=== PATIENT | male | born 1955 | race Caucasian/White ===

== ENCOUNTER 2023-01-15 10:34 | Outpatient (OUT) | payer MEDICARE, SELFPAY ==
[2023-01-15 11:08] LABS: Basophils Absolute Auto 0.1 10^3/uL (0.0-0.1); Basophils Percent Auto 0.5 % (0.2-2.0); Eosinophils Absolute Auto 0.3 10^3/uL (0.0-0.7); Hematocrit 54.8 % (42.0-54.0); Hemoglobin 18.4 g/dL (14.0-18.0); Immature Granulocytes Abs Auto 0.02 10^3/uL (0.00-0.03); Immature Granulocytes Pct Auto 0.2 % (0.0-0.5); Lymphocytes Absolute Auto 2.6 10^3/uL (1.2-3.8); Lymphocytes Percent Auto 25.3 % (20.5-60.0); Mean Corpuscular HGB Conc 33.6 g/dL (29.9-35.2); Mean Corpuscular Hemoglobin 30.9 pg (25.9-34.0); Mean Corpuscular Volume 91.9 fL (80.0-94.0); Mean Platelet Volume 10.2 fL (9.5-13.5); Monocytes Absolute Auto 0.8 10^3/uL (0.3-0.8); Monocytes Percent Auto 8.2 % (1.7-12.0); Neutrophils Absolute Auto 6.4 10^3/uL (1.4-6.5); Neutrophils Percent Auto 62.8 % (43.0-75.0); Platelet Count 173 10^3/uL (150-450); Red Blood Count 5.96 10^6/uL (4.70-6.10); Red Cell Distribution Width 14.6 % (11.0-15.0); White Blood Count 10.2 10^3/uL (4.0-11.0)
[2023-01-15 11:19] LABS: Estimated Average Glucose 123 mg/dL; Glycohemoglobin A1C 5.9 % (4.5-6.2)
[2023-01-15 12:18] LABS: Alanine Aminotransferase 23 U/L (16-63); Albumin Globulin Ratio 0.9; Albumin Level 3.7 g/dL (3.4-5.0); Alkaline Phosphatase 60 U/L (46-116); Anion Gap 11.2; Aspartate Amino Transferase 15 U/L (15-37); BUN Creatinine Ratio 9.6; Bilirubin Direct 0.1 mg/dL (0.0-0.2); Bilirubin Total 0.4 mg/dL (0.2-1.0); Carbon Dioxide 26.7 mmol/L (21.0-32.0); Chloride 106 mmol/L (98-107); Chol HDL Ratio 4.9; Cholesterol 167 mg/dL (<=200); Estimated GFR (African America >60 (>=60); Estimated GFR (Non-African Ame >60 (>=60); Globulin 4.2 g/dL; Glucose 135 mg/dL (74-106); HDL Cholesterol 34 mg/dL (40-60); Potassium 3.9 mmol/L (3.5-5.1); Sodium 140 mmol/L (136-145); Thyroid Stimulating Hormone 2.069 uIU/mL (0.358-3.740); Total Protein 7.9 g/dL (6.4-8.2); Triglycerides 235 mg/dL (<=150)
[2023-01-15 13:38] LABS: Prostate Specific Antigen Scrn 1.32 ng/mL (<=4.00)
== END 2023-01-15 10:35 | disposition home or self-care (01) ==
PROVIDERS: PCP Family Medicine; Visit Provider Family Medicine
DX: E55.9 Vitamin D deficiency, unspecified (principal); I10 Essential (primary) hypertension; Z79.899 Other long term (current) drug therapy; R73.03 Prediabetes; E78.5 Hyperlipidemia, unspecified; Z12.5 Encounter for screening for malignant neoplasm of prostate; K58.0 Irritable bowel syndrome with diarrhea
CPT/HCPCS: 36415; 80048; 80061; 80076; 82306; 83036; 84443; 85025; G0103

== ENCOUNTER 2023-06-08 10:44 | Emergency (ER) | payer MEDICARE, BC, SELFPAY ==
[2023-06-08] VITALS (12 sets, daily range): BP systolic 150–180; BP diastolic 91–119; PULSE 71–99; RESP 13–22; TEMP 36.4; O2SAT 94–100; BMI 28.2
--- NOTE | 2023-06-08 11:10 | ECG_ITS ---
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
--- NOTE | 2023-06-08 11:11 | XR_ITS ---
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 There is evidence of mild slightly coarse increased interstitial markings throughout all lung serrano likely representing chronic lung changes, similar to previous exam. There is no evidence of pleural effusion or pneumothorax. XR/XR chest 2V IMPRESSION: The findings most likely represent chronic lung changes. Stable chest. Electronically authenticated by: KELIN BELTRAN Date: 06/08/2023 11:57
--- NOTE | 2023-06-08 11:16 | XR_ITS ---
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 There is mild acromioclavicular degenerative change. The visualized soft tissue show no abnormalities in these projections. XR/XR shoulder LT min 2V IMPRESSION: Left shoulder radiographs show no evidence of acute abnormalities. Electronically authenticated by: KELIN BELTRAN Date: 06/08/2023 12:12
[2023-06-08 11:34] LABS: Basophils Percent Auto 0.5 % (0.2-2.0); Eosinophils Absolute Auto 0.3 10^3/uL (0.0-0.7); Eosinophils Percent Auto 4.3 % (0.9-7.0); Hematocrit 52.9 % (42.0-54.0); Hemoglobin 17.8 g/dL (14.0-18.0); Immature Granulocytes Abs Auto 0.02 10^3/uL (0.00-0.03); Immature Granulocytes Pct Auto 0.3 % (0.0-0.5); Lymphocytes Absolute Auto 2.4 10^3/uL (1.2-3.8); Lymphocytes Percent Auto 33.2 % (20.5-60.0); Mean Corpuscular HGB Conc 33.6 g/dL (29.9-35.2); Mean Platelet Volume 9.8 fL (9.5-13.5); Monocytes Absolute Auto 0.7 10^3/uL (0.3-0.8); Monocytes Percent Auto 9.2 % (1.7-12.0); Neutrophils Absolute Auto 3.8 10^3/uL (1.4-6.5); Neutrophils Percent Auto 52.5 % (43.0-75.0); Platelet Count 169 10^3/uL (150-450); Red Blood Count 5.75 10^6/uL (4.70-6.10); Red Cell Distribution Width 14.4 % (11.0-15.0); White Blood Count 7.3 10^3/uL (4.0-11.0)
[2023-06-08 11:46] LABS: INR 1.04
[2023-06-08 11:52] LABS: Alanine Aminotransferase 20 U/L (16-63); Albumin Globulin Ratio 0.8; Albumin Level 3.5 g/dL (3.4-5.0); Alkaline Phosphatase 67 U/L (46-116); Anion Gap 9.9; Aspartate Amino Transferase 15 U/L (15-37); BUN Creatinine Ratio 11.7; Bilirubin Total 0.4 mg/dL (0.2-1.0); Calcium 9.6 mg/dL (8.5-10.1); Carbon Dioxide 29.8 mmol/L (21.0-32.0); Chloride 106 mmol/L (98-107); Estimated GFR (African America >60 (>=60); Estimated GFR (Non-African Ame >60 (>=60); Globulin 4.6 g/dL; Glucose 99 mg/dL (74-106); Potassium 4.7 mmol/L (3.5-5.1); Sodium 141 mmol/L (136-145); Total Protein 8.1 g/dL (6.4-8.2)
[2023-06-08 11:53] LABS: Troponin I High Sensitivity 9.6 pg/mL (4.0-76.1)
[2023-06-08] MEDS: KETOROLAC TROMETHAMINE 30 MG/ML VIAL 15 MG IVP (11:53)
--- NOTE | 2023-06-08 15:03 | ED_ITS ---
HPI - Extremity Injury (Upper) General Chief Complaint: Extremity Injury, Upper Stated Complaint: UPPER EXTREMITY PAIN Time Seen by Provider: 06/08/23 11:10 Source: patient Mode of arrival: walk-in Limitations: no limitations History of Present Illness HPI narrative: The patient is coming to the ER with a left shoulder pain that been going on for the last 2 weeks he mentioned that the pain radiated down to his elbow he denies any fall or trauma, the patient denies any sweating nausea vomiting or chest pain Related Data Home Medications Medication Instructions Recorded Confirmed atorvastatin 40 mg tablet 40 mg PO DAILY 06/08/23 06/08/23 lisinopril 20 mg tablet 20 mg PO DAILY 06/08/23 06/08/23 Previous Rx's Medication Instructions Recorded meloxicam 15 mg tablet 15 mg PO DAILY PRN pain #7 tabs 06/08/23 Allergies Allergy/AdvReac Type Severity Reaction Status Date / Time codeine Allergy Intermediate Verified 06/08/23 10:51 Penicillins Allergy Intermediate Verified 06/08/23 10:51 Review of Systems ROS Status of ROS 10 or more systems reviewed and unremark able except as noted in history and below [facility] Medical History (Updated 06/08/23 @ 12:25 by Avis Batista MD) High cholesterol ?E78.00 - Pure hypercholesterolemia, unspecified (ICD-10) Myocardial infarction ?I21.9 - Acute myocardial infarction, unspecified (ICD-10) Social History Smoking status: Current every day smoker Exam Narrative Exam Narrative: Nurses notes and vital signs reviewed and patient is not hypoxic. General: Well-appearing and in no apparent distress. Skin: Warm, dry, no pallor noted. No rash. Head: Normocephalic, atraumatic. Neck: Supple, non-tender. Eye: Pupils are equal, round and EOMI. No scleral icterus. Ears, Nose, Mouth, and Throat: TM are clear, no nasal mucosal hypertrophy. Oral mucosa is moist, no posterior oropharynx erythema, uvula is mid-line Cardiovascular: Regular Rate and Rhythm without murmur, gallop or rub. Respiratory: No accessory muscle use or respiratory distress. Lungs are clear to auscultation, no wheezing, rales or rhonchi Chest Wall: no tenderness Back: No midline thoracic or lumbar vertebral tenderness. No CVA tenderness Musculoskeletal: normal ROM, no calf or popliteal tenderness, no lower extremity edema/swelling there is a localized tenderness at the anterior aspect of the left shoulder GI: Abdomen is soft, non-distended. Normal bowel sounds. No masses appreciated. No tenderness to palpation. No rebound, guarding, or rigidity noted. Neurological: A&O x4. No cranial nerve dysfunction observed. No truncal ataxia. Moves all extremities. Sensation intact. Psychiatric: Cooperative and interactive. Normal mood and affect. Constitutional Vital Signs, click to edit/add: Last Vital Signs Temp 97.6 F 06/08/23 10:47 Pulse 80 06/08/23 12:30 Resp 18 06/08/23 12:30 BP 160/91 H 06/08/23 12:30 Pulse Ox 96 06/08/23 12:30 O2 Del Method Room Air 06/08/23 12:30 Course Vital Signs Vital signs: Vital Signs Temperature 97.6 F 06/08/23 10:47 Pulse Rate 99 H 06/08/23 10:47 Respiratory Rate 18 06/08/23 10:47 Blood Pressure 180/112 H 06/08/23 10:47 Pulse Oximetry 97 06/08/23 10:47 Temperature 97.6 F 06/08/23 10:47 Pulse Rate 80 06/08/23 12:30 Respiratory Rate 18 06/08/23 12:30 Blood Pressure 160/91 H 06/08/23 12:30 Pulse Oximetry 96 06/08/23 12:30 Oxygen Delivery Method Room Air 06/08/23 12:30 MDM - Extremity Injury (Upper) MDM Narrative Medical decision making narrative: The patient EKG in the ER showing sinus rhythm with a heart rate of [address] elevation or depression It was noted upon presentation that the patient blood pressure was elevated but he did not take his blood pressure medication today CBC chemistry showed no acute pathology and the patient chest x-ray and x-ray of the left shoulder showed no acute pathology as well The patient was feeling much better after being treated with a Toradol in the ER he was discharged home with instruction that he need to follow-up with orthopedic as outpatient he also was provided with a Mobic prescription The patient is to follow up with primary care physician in next 2-3 days or to return to the emergency department should any of the signs or symptoms worsen or new symptoms develop. The patient agrees with the following Diagnosis and Treatment plan and the patient will be discharged home. Lab Data Labs: Lab Results 06/08/23 Range/Units 11:26 WBC 7.3 (4.0-11.0) 10^3/uL RBC 5.75 (4.70-6.10) 10^6/uL Hgb 17.8 (14.0-18.0) g/dL Hct 52.9 (42.0-54.0) % MCV 92.0 (80.0-94.0) fL MCH 31.0 (25.9-34.0) pg MCHC 33.6 (29.9-35.2) g/dL RDW 14.4 (11.0-15.0) % Plt Count 169 (150-450) 10^3/uL MPV 9.8 (9.5-13.5) fL Neut % (Auto) 52.5 (43.0-75.0) % Lymph % (Auto) 33.2 (20.5-60.0) % [place] % (Auto) 9.2 (1.7-12.0) % Eos % (Auto) 4.3 (0.9-7.0) % Baso % (Auto) 0.5 (0.2-2.0) % Neut # (Auto) 3.8 (1.4-6.5) 10^3/uL Lymph # (Auto) 2.4 (1.2-3.8) 10^3/uL [place] # (Auto) 0.7 (0.3-0.8) 10^3/uL Eos # (Auto) 0.3 (0.0-0.7) 10^3/uL Baso # (Auto) 0.0 (0.0-0.1) 10^3/uL Abs Immat Gran (auto) 0.02 (0.00-0.03) 10^3/uL Imm/Tot Granulo (auto) 0.3 (0.0-0.5) % PT 11.0 (9.0-11.6) sec INR 1.04 Sodium 141 (136-145) mmol/L Potassium 4.7 (3.5-5.1) mmol/L Chloride 106 (98-107) mmol/L Carbon Dioxide 29.8 (21.0-32.0) mmol/L Anion Gap 9.9 BUN 13.0 (7.0-18.0) mg/dL Creatinine 1.11 (0.70-1.30) mg/dL Est GFR ( Amer) >60 (>=60) Est GFR (Non-Af Amer) >60 (>=60) BUN/Creatinine Ratio 11.7 Glucose 99 (74-106) mg/dL Calcium 9.6 (8.5-10.1) mg/dL Total Bilirubin 0.4 (0.2-1.0) mg/dL AST 15 (15-37) U/L ALT 20 (16-63) U/L Alkaline Phosphatase 67 (46-116) U/L Troponin I High Sens 9.6 (4.0-76.1) pg/mL Total Protein 8.1 (6.4-8.2) g/dL Albumin 3.5 (3.4-5.0) g/dL Globulin 4.6 g/dL Albumin/Globulin Ratio 0.8 Discharge Plan Discharge Chief Complaint: Extremity Injury, Upper Clinical Impression: Impingement of left shoulder Patient Disposition: Home, Self-Care Time of Disposition Decision: 12:25 Condition: Good Prescriptions / Home Meds: New meloxicam 15 mg tablet 15 mg PO DAILY PRN (Reason: pain ) Qty: 7 0RF No Action lisinopril 20 mg tablet 20 mg PO DAILY atorvastatin 40 mg tablet 40 mg PO DAILY Instructions: Shoulder Pain (ED) Stand Alone Forms: Portal Instructions Referrals: Vinay Jimenez MD [Primary Care Provider] - 1 week Discharge Date/Time: 06/08/23 12:36
== END 2023-06-08 12:36 | disposition home or self-care (01) ==
PROVIDERS: Emergency Provider Emergency Medicine; PCP Family Medicine
DX: M75.42 Impingement syndrome of left shoulder (principal); E78.00 Pure hypercholesterolemia, unspecified; I10 Essential (primary) hypertension; I25.2 Old myocardial infarction; F17.210 Nicotine dependence, cigarettes, uncomplicated; Z79.899 Other long term (current) drug therapy
CPT/HCPCS: 36415; 71046; 73030; 80053; 84484; 85025; 85610; 93005; 96374; 99285; J1885

== ENCOUNTER 2023-06-18 10:49 | Emergency (ER) | payer MEDICARE, BC, SELFPAY ==
[2023-06-18 11:09] VITALS: BP 171/106; PULSE 94; RESP 16; TEMP 36.8; O2SAT 96; BMI 28.2
--- OUTSIDE RECORDS SUMMARY | 2023-06-18 11:22 | XMS_ITS | CCD ---
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 control and/or adjustment of mA and/or kV according to patient size and/or use of iterative reconstruction technique. ABDOMINAL CT SCAN FINDINGS: Minimal scarring in the inferior segment of the lingula. Normal heart size with no pericardial effusion. Small sliding hiatus hernia. Calcified granuloma in the spleen. Remaining nonenhanced abdominal solid organs are unremarkable. The gallbladder is contracted containing some gallstones but no CT findings of acute cholecystitis. No evidence of free intraperitoneal fluid or air. No acute osseous abnormality. Degenerative changes of the spine predominantly at L5-S1. Some bruising seen in the right anterior lateral subcutaneous flank of the lower abdomen and upper pelvis with a subcutaneous hematoma measuring 12.5 x 1.2 x 11.7 cm (image #39, series 5 and image #78, series 3). No extension within the muscle wall or within the abdomen or pelvis identified.. PELVIC CT FINDINGS: Acute nondisplaced fracture along the anterior cortical surface of the right iliac wing (image #[id number], series 3 and image #61, series 5). No other clear fracture identified. No subluxation or dislocation. Very mild fatty stranding/bruising seen just anterior to the right iliacus muscle. The right iliacus muscle is just minimally more prominent in short axis diameter measuring 2.5 cm in comparison to the left that measures 1.9 cm likely due to underlying bruising. Mild prostatomegaly measuring 4.8 x 3.9 cm. Seminal vesicles and urinary bladder are unremarkable. Diverticulosis of the colon without CT findings to suspect acute diverticulitis. No bowel obstruction or abnormal bowel wall thickening. The appendix is normal. No acute bony trauma. IMPRESSION: 1. Acute nondisplaced fracture along the anterior cortical surface of the right iliac wing is in good alignment. There is mild asymmetric prominence of the right iliacus muscle likely due to underlying bruising with associated mild fatty stranding just along the anterior surface of this muscle. 2. Some bruising seen within the right anterior lateral subcutaneous flank of the lower abdomen and upper pelvis with underlying subcutaneous hematoma measuring 12.5 x 1.2 x 11.7 cm. No extension into the muscle wall are within the abdomen or pelvis identified. 3. Cholelithiasis within a contracted gallbladder. No CT findings of acute cholecystitis. 4. Small sliding hiatus hernia. 5. Diverticulosis of the colon without CT findings to suspect acute diverticulitis. Electronically authenticated by: Alonzo SMALL Date: 2020-01-09 19:52 Normal [facility] LIPASEon 01-09-2020 Lipase [Catalytic activity/Vol] 203.0 U/L Normal 23.0-300.0 [facility] Comment on above: Performed By: #### L IPA, CMP #### [facility] [address] [place], [place] [id number] Balaedilberto Marceloen PROF 14(COMP METB)on 020 Albumin [Mass/Vol] 4.0 g/dL Normal 3.5-5.0 [facility] Comment on above: Performed By: #### L IPA, CMP #### [facility] [address] [place], [place] [id number] Bala Sultana Albumin/Globulin [Mass ratio] 1.0 {ratio} Normal [facility] Comment on above: Performed By: #### L IPA, CMP #### [facility] [address] [place], [place] [address] Bala Sultana ALP [Catalytic activity/Vol] 44 U/L Normal 38-126 [facility] Comment on above: Performed By: #### L IPA, CMP #### [facility] [address] [place], [place] [phone] Bala Sultana ALT [Catalytic activity/Vol] 40 U/L Normal 21-72 [facility] Comment on above: Performed By: #### L IPA, CMP #### [facility] [address] [place], [place] [phone] Bala Sultana Anion gap [Moles/Vol] 12.8 mmol/L Normal [facility] Comment on above: Performed By: #### L IPA, CMP #### [facility] [address] [place], [place] [address] Bala Sultana AST [Catalytic activity/Vol] 37 U/L Normal 17-59 [facility] Comment on above: Performed By: #### L IPA, CMP #### [facility] [address] [place], [place] [phone] Bala Sultana Bilirubin [Mass/Vol] 0.4 mg/dL Normal 0.2-1.3 [facility] Comment on above: Performed By: #### L IPA, CMP #### [facility] [address] [place] [id number] Bala Sultana Calcium [Mass/Vol] 9.4 mg/dL Normal 8.4-10.2 [facility] Comment on above: Performed By: #### L IPA, CMP #### [facility] [address] [place] [id number] Bala Sultana Chloride [Moles/Vol] 102 mmol/L Normal 98-107 [facility] Comment on above: Performed By: #### L IPA, CMP #### [facility] [address] [place] [address] Bala Sultana CO2 [Moles/Vol] 25.0 mmol/L Normal 22.0-30.0 [facility] Comment on above: Performed By: #### L IPA, CMP #### [facility] [address] [place] [address] Bala Sultana Creatinine [Mass/Vol] 2.06 mg/dL Critically high 0.66-1.25 [facility] Comment on above: Performed By: #### L IPA, CMP #### [facility] [address] [place] [id number] Bala Sultana EGFR-AF MOSOTHO 39 mL/min/1.73m2 Critically low >=60 [facility] Comment on above: Performed By: #### L IPA, CMP #### [facility] [address] [place] [address] Bala Sultana EGFR-NON AF MOSOTHO 32 mL/min/1.73m2 Critically low >=60 [facility] Comment on above: Performed By: #### L IPA, CMP #### [facility] [address] [place] [id number] Bala Sultana Globulin (S) [Mass/Vol] 4.0 g/dL Normal [facility] Comment on above: Performed By: #### L IPA, CMP #### [facility] [address] [place] [id number] Bala Sultana Glucose [Mass/Vol] 137 mg/dL Critically high 74-106 [facility] Comment on above: Performed By: #### L IPA, CMP #### [facility] [address] [place] [id number] Bala Sultana Potassium [Moles/Vol] 4.8 mmol/L Normal 3.4-5.0 [facility] Comment on above: Performed By: #### L IPA, CMP #### [facility] [address] [place] [id number] Bala Sultana Protein [Mass/Vol] 8.0 g/dL Normal 6.1-8.2 [facility] Comment on above: Performed By: #### L IPA, CMP #### [facility] [address] [place] [address] Bala Sultana Sodium [Moles/Vol] 135 mmol/L Critically low 137-145 [facility] Comment on above: Performed By: #### L IPA, CMP #### [facility] [address] [place] [id number] Bala Sultana Urea nitrogen [Mass/Vol] 33.0 mg/dL Critically high 9.0-20.0 [facility] Comment on above: Performed By: #### L IPA, CMP #### [facility] [address] [place] [id number] Bala Sultana Urea nitrogen/Creatinine [Mass ratio] 16.0 mg/mg Normal [facility] Comment on above: Performed By: #### L IPA, CMP #### [facility] [address] [place] [id number] Bala Weinberg HEMOGLOBINon 10-12-2019 Hemoglobin (Bld) [Mass/Vol] 14.1 g/dL Normal 14.0-18.0 [facility] Comment on above: Performed By: #### H GB #### [facility] [address] [place] [id number] Bala Sultana Basic Metabolic Panelon 06-27 Calcium mass conc 8.8 mg/dL Normal 8.2-10.2 [facility] Comment on above: Performed By: #### C BC, BMP, TROP #### [facility] [address] [place] [address] [place] Chloride molar conc 106 mmol/L Normal 95-114 [facility] Comment on above: Performed By: #### C BC, BMP, TROP #### [facility] [address] CO2 molar conc 22.1 mmol/L Normal 22.0-30.0 [facility] Comment on above: Performed By: #### C BC, BMP, TROP #### [facility] [address] [place] [address] Creatinine mass conc 81.4567750511 mg/dL Normal [facility] Comment on above: Performed By: #### C BC, BMP, TROP #### [facility] [address] Creatinine mass conc 1.11 mg/dL Normal 0.64-1.27 [facility] Comment on above: Performed By: #### C BC, BMP, TROP #### [address] Estimated GFR ( [place] > 60 [facility] Comment on above: Result Comment: GFR estimated reference range: According to KDOQI guidelines, <60 ml/min/1.73m2 is sufficient to diagnose a patient with chronic kidney disease. Performed By: #### C BC, BMP, TROP #### [address] Estimated GFR (Non- Am > 60 [facility] Comment on above: Performed By: #### C BC, BMP, TROP #### [address] Glucose mass conc 106 mg/dL High 70-100 [facility] Comment on above: Result Comment: [place] om Glucose Reference Range is dependent on time and content of last meal. Glucose of more than 200 mg/dL in a nonstressed, ambulatory subject supports the diagnosis of Diabetes Mellitus. ADA recommended reference range Performed By: #### C BC, BMP, TROP #### [address] Potassium molar conc 3.8 mmol/L Normal 3.5-5.1 [facility] Comment on above: Performed By: #### C BC, BMP, TROP #### [facility] [address] [place] [address] Sodium molar conc 137 mmol/L Normal 136-146 [facility] Comment on above: Performed By: #### C BC, BMP, TROP #### [address] Urea nitrogen mass conc 13 mg/dL Normal 9-23 [facility] Comment on above: Performed By: #### C BC, BMP, TROP #### [address] Complete Blood Count Auto Di ffon 07-17-2018 Basophils #/vol (Bld) 0.0 10*3/uL Normal 0.0-0.2 [facility] Comment on above: Result Comment: PERF ORMED BY: [place] [address] PATHOLOGIST HAND PRESSER ARMIN ROUSSEAU M.D. Performed By: #### C BC, BMP, TROP #### [address] Basophils/100 WBC (Bld) 0.4 % Normal . [facility] Comment on above: Performed By: #### C BC, BMP, TROP #### [address] Eosinophils #/vol (Bld) 0.2 10*3/uL Normal 0.0-0.45 [facility] Comment on above: Performed By: #### C BC, BMP, TROP #### [address] Eosinophils/100 WBC (Bld) 1.9 % Normal . [facility] Comment on above: Performed By: #### C BC, BMP, TROP #### [address] Erythrocyte distribution width Ratio (RBC) 14.7 % Normal 12.0-14.8 [facility] Comment on above: Performed By: #### C BC, BMP, TROP #### [address] Hematocrit Volume Fraction (Bld) 48.5 % Normal 38.8-50.0 [facility] Comment on above: Performed By: #### C ALBER EWING, TROP #### [address] Hemoglobin mass conc (Bld) 16.5 g/dL Normal 13.0-17.0 [facility] Comment on above: Performed By: #### C KAYLIN BMP, TROP #### [address] Lymphocytes #/vol (Bld) 3.2 10*3/uL Normal 1.00-4.8 [facility] Comment on above: Performed By: #### C ALBER EWING, TROP #### [address] Lymphocytes/100 WBC (Bld) 32.3 % Normal . [facility] Comment on above: Performed By: #### C KAYLIN BMP, TROP #### [address] MCH Entitic mass (RBC) 31.6 pg Normal 27.5-35.2 [facility] Comment on above: Performed By: #### C KAYLIN BMP, TROP #### [address] MCH Entitic mass (RBC) 34.1 g/dL Normal 32.5-35.6 [facility] Comment on above: Performed By: #### C KAYLIN BMP, TROP #### [address] MCV Entitic volume (RBC) 92.9 fL Normal 83.5-101 [facility] Comment on above: Performed By: #### C BC BMP, TROP #### [address] Monocytes #/vol (Bld) 0.9 10*3/uL High 0.0-0.8 [facility] Comment on above: Performed By: #### C BC, BMP, TROP #### [facility] [address] [place] [address] [place] Monocytes/100 WBC (Bld) 9.0 % Normal . [facility] Comment on above: Performed By: #### C BC BMP, TROP #### [facility] [address] [place] [address] [place] Neutrophils #/vol (Bld) 5.6 10*3/uL Normal 1.8-7.7 [facility] Comment on above: Performed By: #### C BC BMP, TROP #### [facility] [address] Neutrophils/100 WBC (Bld) 56.4 % Normal . [facility] Comment on above: Performed By: #### C BC BMP, TROP #### [facility] [address] Nucleated RBC/100 WBC Ratio (Bld) 0.2 % Normal 0-0.5 [facility] Comment on above: Performed By: #### C BC BMP, TROP #### [facility] [address] [place] [address] [place] Platelet mean volume Entitic volume (Bld) 8.1 fL Normal 6.6-10.1 [facility] Comment on above: Performed By: #### C BC BMP, TROP #### [facility] [address] [place] [address] [place] Platelets #/vol (Bld) 165 10*3/uL Normal 150-450 [facility] Comment on above: Performed By: #### C BC, BMP, TROP #### [facility] [address] [place] [address] [place] RBC #/vol (Bld) 5.22 10*6/uL Normal 3.90-5.60 [facility] Comment on above: Performed By: #### C BC, BMP, TROP #### [facility] [address] [place] [address] [place] WBC #/vol (Bld) 9.8 10*3/uL Normal 4.1-10.5 [facility] Comment on above: Performed By: #### C BC, BMP, TROP #### [facility] [address] Lipid Panelon 07-17-2018 Cholesterol in HDL mass conc 25 mg/dL Low 29-71 [facility] Comment on above: Result Comment: HDL CHOL ATP-III CLASSIFICATION Cardiovascular Risk HDL > or equal to 60 mg/dL LOW HDL < 40 mg/dL HIGH Performed By: #### C BC, BMP, TROP #### [facility] [address] Cholesterol mass conc 131 mg/dL Low 140-200 [facility] Comment on above: Result Comment: Chol less than 200 mg/dl low risk Chol 201-239 mg/dl borderline risk Chol 240 mg/dl and greater high risk Performed By: #### C BC, BMP, TROP #### [facility] [address] Cholesterol.total/Cho lesterol in HDL mass ratio 5.2 {ratio} Normal <5.0 [facility] Comment on above: Result Comment: PERF ORMED BY: [place] [address] PATHOLOGIST HAND PRESSER ARMIN ROUSSEAU M.D. Performed By: #### C BC, BMP, TROP #### [address] LDL Cholesterol,Calculate d 78 mg/dL Normal 0-100 [facility] Comment on above: Result Comment: LDL ATP III CLASSIFICATION LDL less than 100 mg/dL Optimal LDL 100-129 mg/dL Near or above optimal LDL 130-159 mg/dL Borderline high LDL 160-189 mg/dL High LDL greater than 189 mg/dL Very high Performed By: #### C BC, BMP, TROP #### [facility] [address] Triglyceride w/Reflex 142 mg/dL Normal 35-149 [facility] Comment on above: Result Comment: TRIG ATP III CLASSIFICATION TRIG less than 150 mg/dL Normal TRIG 150-199 mg/dL Borderline high TRIG 200-500 mg/dL High TRIG greater than 500 mg/dL Very high Standard traceable to the Center for Disease Conrtrol and Prevention (CDC) test method. Performed By: #### C BC, BMP, TROP #### [facility] [address] VLDL CHOLESTEROL 28 mg/dL Normal [facility] Comment on above: Performed By: #### C BC, BMP, TROP #### [facility] [address] Partial Thromboplastin Timeo n 07-17-2018 aPTT Coag time (Bld) 36.2 s High 23.0-35.0 [facility] Comment on above: Result Comment: PERF ORMED BY: [place] [address] PATHOLOGIST HAND PRESSER ARMIN ROUSSEAU M.D. Performed By: #### C BC, BMP, TROP #### [address] Prothrombin Time INRon 07-17 INR Coag RelTime (PPP) 1.2 {INR} Normal [facility] Comment on above: Result Comment: INR Therapeutic Range A) Pre- and Peroperative OAT started two weeks before surgery. NOT HIP SURGERY: 1.5 - 2.5 HIP SURGERY: 2 - 3 B) Primary and secondary prevention of venous THROMBOSIS: 2 - 3 C) Active venous thrombosis, pulmonary embolism and prevention of recurrent venous thrombosis: 2 - 3 D) Prevention of arterial thromboembolism including patients with mechanical heart valves: 3 - 4.5 Performed By: #### C BC, BMP, TROP #### [address] Prothrombin time (PT) Coag time (PPP) 13.4 s High 9.0-12.9 [facility] Comment on above: Performed By: #### C BC, BMP, TROP #### [facility] [address] [place] [address] Troponin I(TnI)on 07-17-2018 Troponin I.cardiac mass conc 5.99 ng/mL Off scale high 0-0.02 [facility] Comment on above: Result Comment: [place] Cut off value > or equal to 0.03 ng/mL in conjunction with clinical conditions of myocardial infarction. (www.escardio.org/guidelines) PERFORMED BY: [place] [address] PATHOLOGIST HAND PRESSER ARMIN ROUSSEAU M.D. Performed By: #### C BC, BMP, TROP #### [facility] [address] A1C with Estimated Average G karishma 07-16-2018 Glucose mass conc 131 mg/dL Normal [facility] Comment on above: Result Comment: PERF ORMED BY: [place] [address] PATHOLOGIST HAND PRESSER ARMIN ROUSSEAU M.D. Performed By: #### A 1C WTH eA #### [address] Hemoglobin A1c/Hemoglobin.total mass fraction (Bld) 6.2 % High 4.3-5.6 [facility] Comment on above: Result Comment: Incr eased risk for diabetes: 5.7 - 6.4 diabetes: >6.4 glycemic control for adults with diabetes: <7.0 Performed By: #### A 1C WTH eA #### [facility] [address] [place] [address] Basic Metabolic Panelon 06-27 Calcium mass conc 9.1 mg/dL Normal 8.2-10.2 [facility] Comment on above: Performed By: #### C BC, BMP, TROP #### [place] [address] [place] Chloride molar conc 107 mmol/L Normal 95-114 [facility] Comment on above: Performed By: #### C BC, BMP, TROP #### [facility] [address] CO2 molar conc 23.8 mmol/L Normal 22.0-30.0 [facility] Comment on above: Performed By: #### C BC, BMP, TROP #### [facility] [address] [place] [address] Creatinine mass conc 85.9215469303 mg/dL Normal [facility] Comment on above: Result Comment: PERF ORMED BY: [place] [address] PATHOLOGIST HAND PRESSER ARMIN ROUSSEAU M.D. Performed By: #### C BC, BMP, TROP #### [place] [address] [place] Creatinine mass conc 1.05 mg/dL Normal 0.64-1.27 [facility] Comment on above: Performed By: #### C BC, BMP, TROP #### [address] Estimated GFR ( [place] > 60 Normal [facility] Comment on above: Result Comment: GFR estimated reference range: According to KDOQI guidelines, <60 ml/min/1.73m2 is sufficient to diagnose a patient with chronic kidney disease. Performed By: #### C BC, BMP, TROP #### [place] [address] [place] Estimated GFR (Non- Am > 60 Normal [facility] Comment on above: Performed By: #### C BC, BMP, TROP #### [place] [address] [place] Glucose mass conc 100 mg/dL Normal 70-100 [facility] Comment on above: Result Comment: [place] om Glucose Reference Range is dependent on time and content of last meal. Glucose of more than 200 mg/dL in a nonstressed, ambulatory subject supports the diagnosis of Diabetes Mellitus. ADA recommended reference range Performed By: #### C BC, BMP, TROP #### [place] [address] [place] Potassium molar conc 3.9 mmol/L Normal 3.5-5.1 [facility] Comment on above: Performed By: #### C BC, BMP, TROP #### [place] [address] [place] Sodium molar conc 138 mmol/L Normal 136-146 [facility] Comment on above: Performed By: #### C BC, BMP, TROP #### [place] [address] [place] Urea nitrogen mass conc 12 mg/dL Normal 9-23 [facility] Comment on above: Performed By: #### C BC, BMP, TROP #### [facility] [address] Complete Blood Count Auto Di ffon 07-16-2018 Basophils #/vol (Bld) 0.1 10*3/uL Normal 0.0-0.2 [facility] Comment on above: Result Comment: PERF ORMED BY: [place] [address] PATHOLOGIST HAND PRESSER ARMIN ROUSSEAU M.D. Performed By: #### C BC, BMP, TROP #### [facility] [address] Basophils/100 WBC (Bld) 0.9 % Normal . [facility] Comment on above: Performed By: #### C BC, BMP, TROP #### [facility] [address] Eosinophils #/vol (Bld) 0.1 10*3/uL Normal 0.0-0.45 [facility] Comment on above: Performed By: #### C BC, BMP, TROP #### [facility] [address] [place] [address] Eosinophils/100 WBC (Bld) 1.3 % Normal . [facility] Comment on above: Performed By: #### C BC, BMP, TROP #### [facility] [address] Erythrocyte distribution width Ratio (RBC) 14.9 % High 12.0-14.8 [facility] Comment on above: Performed By: #### C BC, BMP, TROP #### [facility] [address] Hematocrit Volume Fraction (Bld) 52.3 % High 38.8-50.0 [facility] Comment on above: Performed By: #### C BC, BMP, TROP #### [facility] [address] [place] [address] Hemoglobin mass conc (Bld) 17.6 g/dL High 13.0-17.0 [facility] Comment on above: Performed By: #### C BC, BMP, TROP #### [facility] [address] [place] [address] [place] Lymphocytes #/vol (Bld) 3.2 10*3/uL Normal 1.00-4.8 [facility] Comment on above: Performed By: #### C BC, BMP, TROP #### [facility] [address] [place] [address] [place] Lymphocytes/100 WBC (Bld) 29.4 % Normal . [facility] Comment on above: Performed By: #### C BC, BMP, TROP #### [facility] [address] MCH Entitic mass (RBC) 33.7 g/dL Normal 32.5-35.6 [facility] Comment on above: Performed By: #### C BC, BMP, TROP #### [facility] [address] MCH Entitic mass (RBC) 31.2 pg Normal 27.5-35.2 [facility] Comment on above: Performed By: #### C BC, BMP, TROP #### [facility] [address] MCV Entitic volume (RBC) 92.8 fL Normal 83.5-101 [facility] Comment on above: Performed By: #### C BC, BMP, TROP #### [facility] [address] [place] [address] [place] Monocytes #/vol (Bld) 0.8 10*3/uL Normal 0.0-0.8 [facility] Comment on above: Performed By: #### C BC, BMP, TROP #### [facility] [address] [place] [address] [place] Monocytes/100 WBC (Bld) 7.6 % Normal . [facility] Comment on above: Performed By: #### C BC, BMP, TROP #### [facility] [address] [place] [address] [place] Neutrophils #/vol (Bld) 6.7 10*3/uL Normal 1.8-7.7 [facility] Comment on above: Performed By: #### C BC, BMP, TROP #### [facility] [address] [place] [address] [place] Neutrophils/100 WBC (Bld) 60.8 % Normal . [facility] Comment on above: Performed By: #### C BC, BMP, TROP #### [facility] [address] Nucleated RBC/100 WBC Ratio (Bld) 0.1 % Normal 0-0.5 [facility] Comment on above: Performed By: #### C BC, BMP, TROP #### [facility] [address] Platelet mean volume Entitic volume (Bld) 8.3 fL Normal 6.6-10.1 [facility] Comment on above: Performed By: #### C BC, BMP, TROP #### [facility] [address] Platelets #/vol (Bld) 191 10*3/uL Normal 150-450 [facility] Comment on above: Performed By: #### C BC, BMP, TROP #### [facility] [address] [place] [address] [place] RBC #/vol (Bld) 5.64 10*6/uL High 3.90-5.60 [facility] Comment on above: Performed By: #### C BC, BMP, TROP #### [facility] [address] [place] [address] [place] WBC #/vol (Bld) 10.9 10*3/uL Normal 4.5-11.0 [facility] Comment on above: Performed By: #### C BC, BMP, TROP #### [facility] [address] ECG 12 lead ECGon 07-16-2018 ECG 12 lead ECG [facility] [place] [address] [place] [address] Electrocardiograph Report Signed Patient: Talisha Escobedo MR#: [id number] : 1955 Acct:[id number] Age/Sex: 63 / M ADM Date: 07/15/18 Loc: Room: [address] [place] [address] Type: ADM IN Attending Dr: Zari Biggs MD Ordering Provider: Anish Mittal MD Date of Service: 07/16/18 ECG/ECG 12 lead ECG: chest pain, HTN, ST depressions Copies to: Test Reason : Blood Pressure : / mmHG Vent. Rate : 077 BPM Atrial Rate : 077 BPM P-R Int : 176 ms QRS Dur : 086 ms QT Int : 380 ms P-R-T Axes : 056 -67 047 degrees QTc Int : 430 ms Normal sinus rhythm Left anterior fascicular block Abnormal ECG When compared with ECG of 16-JUL-2018 02:13, (Unconfirmed) No significant change was found Confirmed by ANTHONY WALLACE MD ([id number]) on 07/16/2018 1:52:09 PM Referred By: Electronically Signed By:ANTHONY WALLACE MD Transcribed By: [facility] Dictated By: Anthony Wallace MD 07/16/18 0757 Signed By: 07/16/18 1352 Normal [facility] ECG 12 lead ECG [facility] [place] [address] Electrocardiograph Report Signed Patient: Talisha Escobedo MR#: [id number] : 1955 Acct:[id number] Age/Sex: 63 / M ADM Date: 07/15/18 Loc: Room: 8A3263-5 Type: ADM IN Attending Dr: Shilpa Rubio MD Ordering Provider: Zari Biggs MD Date of Service: 07/16/18 ECG/ECG 12 lead ECG: ADMISSION Copies to: Test Reason : Blood Pressure : / mmHG Vent. Rate : 078 BPM Atrial Rate : 078 BPM P-R Int : 170 ms QRS Dur : 086 ms QT Int : 376 ms P-R-T Axes : 061 -59 048 degrees QTc Int : 428 ms Normal sinus rhythm Left axis deviation Abnormal ECG No previous ECGs available Confirmed by ANTHONY WALLACE MD ([id number]) on 07/17/2018 12:21:33 PM Referred By: Electronically Signed By:ANTHONY WALLACE MD Transcribed By: [facility] Dictated By: Anthony Wallace MD 07/16/18 0213 Signed By: 07/17/18 1221 Normal [facility] echo transthoracicon [facility] echo transthoracic [facility] Main [place] [address] [place], [place] [id number] Echocardiogram Signed Patient: Talisha Escobedo MR#: [id number] : 1955 Acct:[id number] Age/Sex: 63 / M ADM Date: 07/15/18 Loc: Room: 9C9339-8 Type: ADM IN Attending Dr: Zari Biggs MD Ordering Provider: Anish Mittal MD Date of Service: 07/16/18 [facility] transthoracic: NSTEMI Copies to: MD Treasure Orozco MD Height: 72 in Weight: 213 lb Performed By: Violet Norman RDCS BSA: 2.2 m2 BP: 141/94 mmHg HR: 77 Reason For Study: NSTEMI History: COPD,Hyperlipidemia, Hypertension,Smoker, family history CAD Interpretation Summary Ejection Fraction = 55-60%. The left ventricular wall motion is normal. Mild concentric left ventricular hypertrophy. A variety of Doppler measurements indicate impaired left ventricular relaxation, which is associated with grade I/IV or mild diastolic dysfunction. The left atrium appears mildly dilated. There is no comparison study available. Procedure/Quality: A two-dimensional transthoracic echocardiogram with color flow and Doppler was performed. The study was technically good in quality. Left Ventricle: The left ventricular size is normal. Mild concentric left ventricular hypertrophy. Ejection Fraction = 55-60%. A variety of Doppler measurements indicate impaired left ventricular relaxation, which is associated with grade I/IV or mild diastolic dysfunction. The left ventricular wall motion is normal. Left Atrium: The left atrium appears mildly dilated. Right Atrium: The right atrium appears normal in size. Right Ventricle: The right ventricular size, thickness and function are normal. Aortic Valve: The aortic valve is normal in structure and function. No aortic regurgitation is present. Mitral Valve: The mitral valve is normal in structure and function. There is no mitral regurgitation noted. Tricuspid Valve: The tricuspid valve is normal in structure and function. No tricuspid regurgitation. Pulmonic Valve: The pulmonic valve is normal in structure and function. Arteries: The aortic root is normal size. Pericardium/Pleura: No pericardial effusion seen. There is no pleural effusion. IVC/Hepatic Viens: The inferior vena cava is normal in size, with a normal collapsibility index. Measurements with Normals IVSd: 1.2 cm (0.7-1.1 cm)LVIDd: 5.1 cm (3.7-5.4 cm) LVPWd: 0.95 cm (0.7-1.1 cm)LVIDs: 2.7 cm (2.3-3.6 cm) LA dimension: 4.1 cm(2.3-4.0 cm)Ao root diam: 3.4 cm(2.0-3.2 cm) Doppler with Normals MV E max jourdan: 54.6 cm/sec(0.8-1.3m/s) MV A max jourdan: 65.5 cm/sec(0.0-0.0m/s) MV E/A: 0.83 (<1.5) MMode/2D Measurements Calculations FS: 48.1 % Ao root area: LAV(MOD-sp4): LA A2 area: 17.3 cm2 EDV(Teich): 9.2 cm2 59.4 ml LA A4 area: 20.6 cm2 126.0 ml LAV(MOD-sp2): LA length (vol): ESV(Teich): 44.0 ml 5.6 cm 26.2 ml LA vol: 54.2 ml EF(Teich): 79.2 % LA vol index: 24.8 ml/m2 Doppler Measurements Calculations MV dec time: 0.24 sec MV max PG: E/E' lat: MV dec slope: 17.0 mmHg 7.8 224.4 cm/sec2 E/E' med: 7.5 __ MR max jourdan: 207.4 cm/sec MR max P.2 mmHg __ Transcribed By: SCV 07/16/18 1042 Dictated By: Treasure Pabon MD 07/16/18 0856 Signed By: 07/16/18 1042 Normal [facility] Magnesiumon 07-16-2018 Magnesium mass conc 2.1 mg/dL Normal 1.6-2.6 [facility] Comment on above: Order Comment: Comme nt add Result Comment: PERF ORMED BY: [place] [address] PATHOLOGIST HAND PRESSER ARMIN ROUSSEAU M.D. Performed By: #### M G #### [facility] [address] [place] [address] Partial Thromboplastin Timeo n 07-16-2018 aPTT Coag time (Bld) 43.2 s High 23.0-35.0 [facility] Comment on above: Result Comment: PERF ORMED BY: [place] [address] PATHOLOGIST HAND PRESSER ARMIN ROUSSEAU M.D. Performed By: #### P TT #### [facility] [address] [place] [address] aPTT Coag time (Bld) 38.1 s High 23.0-35.0 [facility] Comment on above: Result Comment: PERF ORMED BY: [place] [address] PATHOLOGIST HAND PRESSER ARMIN ROUSSEAU M.D. Performed By: #### P T, PTT #### [facility] [address] [place], [place] [id number] [place] Prothrombin Time INRon 07-16 INR Coag RelTime (PPP) 1.1 {INR} Normal [facility] Comment on above: Result Comment: INR Therapeutic Range A) Pre- and Peroperative OAT started two weeks before surgery. NOT HIP SURGERY: 1.5 - 2.5 HIP SURGERY: 2 - 3 B) Primary and secondary prevention of venous THROMBOSIS: 2 - 3 C) Active venous thrombosis, pulmonary embolism and prevention of recurrent venous thrombosis: 2 - 3 D) Prevention of arterial thromboembolism including patients with mechanical heart valves: 3 - 4.5 Performed By: #### P T, PTT #### [address] Prothrombin time (PT) Coag time (PPP) 12.9 s Normal 9.0-12.9 [facility] Comment on above: Performed By: #### P T, PTT #### [address] Troponin I(TnI)on 07-16-2018 Troponin I.cardiac mass conc 14.57 ng/mL Off scale high 0-0.02 [facility] Comment on above: Result Comment: [place] Cut off value > or equal to 0.03 ng/mL in conjunction with clinical conditions of myocardial infarction. (www.escardio.org/guidelines) PERFORMED BY: [place] [address] PATHOLOGIST HAND PRESSER ARMIN ROUSSEAU M.D. Performed By: #### T ROP #### [address] Troponin I.cardiac mass conc 25.38 ng/mL Off scale high 0-0.02 [facility] Comment on above: Result Comment: Resu lts called at 0153 on 07/16/18 [place] Cut off value > or equal to 0.03 ng/mL in conjunction with clinical conditions of myocardial infarction. (www.escardio.org/guidelines) PERFORMED BY: [place] [address] PATHOLOGIST HAND PRESSER ARMIN ROUSSEAU M.D. Performed By: #### C BC, BMP, TROP #### [address] Encounters Encounter Date Encounter Type Care Provider Facility Start: 08-29-2020 End: 08-30-[address] VINAY OROURKE Facility:[facility] Start: 01-25-2020 End: 01-26-[address] VINAY OROURKE Facility:[facility] Start: 01-09-2020 End: 01-09-[address] KATE CASSIDY Facility:[facility] Start: 10-12-2019 End: 10-13-[address] VINAY OROURKE Facility:[facility] Start: 07-16-2018 End: 07-17-2018 [facility] [place] Procedures Date Procedure Procedure Detail Performing Clinician Start: 01-25-[address] VINAY MARTINEZ Comment on above: Performed By: #### L IPID, PSASC, BMP #### [facility] [address] [place], [place] [address] Bala Weinberg Payers Date Payer Category Payer Self-pay 1960 Medicare [id number] 1960 Medicare [id number] 1960 Unknown [id number] 1955 Unknown [id number] 2.16.84 [id number] 1955 Unknown [id number] 2.16.84 [id number] 1955 Unknown [id number] 2.16.84 [id number] 1955 Unknown [id number] 2.16.84 [id number] Unknown [id number] Summary Purpose Family History No Family History Records FoundNo Family History Records Found Advance Directives No Advanced Directives Records FoundNo Advanced Directives Records Found Additional Source Comments (unrecognized sect ion and content) No Status Records FoundNo Status Records Found INFORMATION SOURCE (unrecogn ized section and content) DATE CREATED AUTHOR 08/22/2018 [facility] DATE CREATED AUTHOR AUTHOR'S ORGANIZ ATION 10/05/2020 [facility] FOR RECORDS PERTAINING TO PATIENTS WHO ARE OR HAVE BEEN ENROLLED IN A CHEMICAL DEPENDENCY/SUBSTANCEABUSE PROGRAM, SOME INFORMATION MAY BE OMITTED. This clinical summary was aggregated from multiple sources. Caution should be exercised in using it in the provision of clinical care. This summary normalizes information from multiple sources, and as a consequence, information in this document may materially change the coding, format and clinical context of patient data. In addition, data may be omitted in some cases. CLINICAL DECISIONS SHOULD BE BASED ON THE PRIMARY CLINICAL RECORDS. [employer] [facility]. provides no warranty or guarantee of the accuracy or completeness of information in this document.
[2023-06-18] MEDS: ADACEL DIPH,PERTUSS(ACELL),TET VAC/PF 0.5 ML ADULT SYRINGE IM (12:00)
[2023-06-18] MEDS: LIDOCAINE VISCOUS 2% 15 ML SOLUTION TOPICAL (12:02)
[2023-06-18] MEDS: LIDOCAINE HCL 1% 100 MG/10 ML MDV INJ (12:02)
--- NOTE | 2023-06-18 14:23 | ED_ITS ---
HPI - Head Injury General Chief complaint: Wound/Laceration Stated complaint: facial laceration/ fall Time Seen by Provider: 06/18/23 11:28 Source: patient Mode of arrival: walk-in Limitations: no limitations History of Present Illness HPI Narrative: The patient apparently tripped and hit the back of his truck with his mouth, the patient did not lose consciousness ,he does not have any dentures and his last tetanus was more than 8 years ago Related Data Home Medications Medication Instructions Recorded Confirmed atorvastatin 40 mg tablet 40 mg PO DAILY 06/08/23 06/08/23 lisinopril 20 mg tablet 20 mg PO DAILY 06/08/23 06/08/23 Previous Rx's Medication Instructions Recorded meloxicam 15 mg tablet 15 mg PO DAILY PRN pain #7 tabs 06/08/23 clindamycin HCl 300 mg capsule 300 mg PO TID 7 days #21 caps 06/18/23 Allergies Allergy/AdvReac Type Severity Reaction Status Date / Time codeine Allergy Intermediate Verified 06/18/23 11:09 Penicillins Allergy Intermediate Verified 06/18/23 11:09 Review of Systems ROS Status of ROS 10 or more systems reviewed and unremark able except as noted in history and below [facility] Medical History (Updated 06/18/23 @ 12:56 by Avis Batista MD) High cholesterol ?E78.00 - Pure hypercholesterolemia, unspecified (ICD-10) Myocardial infarction ?I21.9 - Acute myocardial infarction, unspecified (ICD-10) Social History Smoking status: Current every day smoker Exam Narrative Exam Narrative: Nurses notes and vital signs reviewed and patient is not hypoxic. General: Well-appearing and in no apparent distress. Skin: Warm, dry, no pallor noted. No rash. Head: Normocephalic, atraumatic. Neck: Supple, non-tender. Eye: Pupils are equal, round and EOMI. No scleral icterus. Ears, Nose, Mouth, and Throat: TM are clear, no nasal mucosal hypertrophy. The patient does not have any dentures on examination of the left but the patient have a laceration that is almost 1 cm on the upper edge of the lip but he also have another laceration on the anterior aspect of the lip measuring 2 cm linear and longitudinal, no exposure of the underlying structure and it is not through and through lip laceration, wound is clean and the laceration is not through the full-thickness of the lip Cardiovascular: Regular Rate and Rhythm without murmur, gallop or rub. Respiratory: No accessory muscle use or respiratory distress. Lungs are clear to auscultation, no wheezing, rales or rhonchi Chest Wall: no tenderness Back: No midline thoracic or lumbar vertebral tenderness. No CVA tenderness Musculoskeletal: normal ROM, no calf or popliteal tenderness, no lower extremity edema/swelling GI: Abdomen is soft, non-distended. Normal bowel sounds. No masses appreciated. No tenderness to palpation. No rebound, guarding, or rigidity noted. Neurological: A&O x4. No cranial nerve dysfunction observed. No truncal ataxia. Moves all extremities. Sensation intact. Psychiatric: Cooperative and interactive. Normal mood and affect. Constitutional Vital Signs, click to edit/add: Last Vital Signs Temp 98.3 F 06/18/23 11:09 Pulse 94 H 06/18/23 11:09 Resp 16 06/18/23 11:09 BP 171/106 H 06/18/23 11:09 Pulse Ox 96 06/18/23 11:09 O2 Del Method Room Air 06/18/23 11:09 Course Vital Signs Vital signs: Vital Signs Temperature 98.3 F 06/18/23 11:09 Pulse Rate 94 H 06/18/23 11:09 Respiratory Rate 16 06/18/23 11:09 Blood Pressure 171/106 H 06/18/23 11:09 Pulse Oximetry 96 06/18/23 11:09 Oxygen Delivery Method Room Air 06/18/23 11:09 Temperature 98.3 F 06/18/23 11:09 Pulse Rate 94 H 06/18/23 11:09 Respiratory Rate 16 06/18/23 11:09 Blood Pressure 171/106 H 06/18/23 11:09 Pulse Oximetry 96 06/18/23 11:09 Oxygen Delivery Method Room Air 06/18/23 11:09 MDM - Head Injury MDM Narrative Medical decision making narrative: After cleaning the area thoroughly the patient had lidocaine viscus applied to the area then infiltrated the area with 1% lidocaine almost 2 cc The patient then had 14 stitches the first 8 sutures were absorbable and the rest of the stitches after approximating the inner layer of the lip the patient had 6 nonabsorbable stitches 4 -O on the outside Patient discharged home with clindamycin as well as proper wound care instruction The patient is to follow up with primary care physician in next 2-3 days or to return to the emergency department should any of the signs or symptoms worsen or new symptoms develop. The patient agrees with the following Diagnosis and Treatment plan and the patient will be discharged home. Discharge Plan Discharge Chief Complaint: Wound/Laceration Clinical Impression: Complicated laceration of lip Qualifiers: Encounter type: initial encounter Qualified Code(s): S01.511A - Laceration without foreign body of lip, initial encounter Patient Disposition: Home, Self-Care Time of Disposition Decision: 12:55 Condition: Good Prescriptions / Home Meds: New clindamycin HCl 300 mg capsule 300 mg PO TID 7 Days Qty: 21 0RF No Action lisinopril 20 mg tablet 20 mg PO DAILY atorvastatin 40 mg tablet 40 mg PO DAILY meloxicam 15 mg tablet 15 mg PO DAILY PRN (Reason: pain ) Qty: 7 0RF Instructions: Laceration (DC) Stand Alone Forms: Portal Instructions Referrals: Vinay Jimenez MD [Primary Care Provider] - 1 week Discharge Date/Time: 06/18/23 13:13
== END 2023-06-18 13:13 | disposition home or self-care (01) ==
PROVIDERS: Emergency Provider Emergency Medicine; PCP Family Medicine
DX: S01.511A Laceration without foreign body of lip, initial encounter (principal); W18.39XA Other fall on same level, initial encounter; E78.00 Pure hypercholesterolemia, unspecified; I25.2 Old myocardial infarction; F17.200 Nicotine dependence, unspecified, uncomplicated; Z23 Encounter for immunization
CPT/HCPCS: 12013; 90471; 90715; 99284

== ENCOUNTER 2023-06-22 11:22 | Emergency (ER) | payer MEDICARE, BC, SELFPAY ==
[2023-06-22] VITALS (19 sets, daily range): BP systolic 147–178; BP diastolic 84–102; PULSE 72–87; RESP 15–22; TEMP 36.4; O2SAT 92–98
--- NOTE | 2023-06-22 11:35 | ECG_ITS ---
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
--- NOTE | 2023-06-22 11:35 | XR_ITS ---
The [address] [address] Patient Name: TALISHA MERINO MRN: [id number] date: 1955 Sex: M Assigned Patient Location: ER Current Patient Location: ER Accession/Order Number: [id number] Exam Date: 06/22/2023 11:46 Report Date: 06/22/2023 11:58 At the request of: MARKO DICK Procedure: XR chest 1V EXAM: XR chest 1V HISTORY: . dizzy . COMPARISON: 06/08/2023 TECHNIQUE: Single view of the chest. FINDINGS: Heart and vascularity are unremarkable. Lungs are free of focal infiltrates. EKG leads overlie the chest. XR/XR chest 1V Impression: No acute heart or lung disease identified. Electronically authenticated by: DARIEL SMITH Date: 06/22/2023 11:58
--- NOTE | 2023-06-22 11:36 | ED_ITS ---
HPI - Dizziness General Chief Complaint: Dizziness Stated Complaint: SOB previous heart attack Time Seen by Provider: 06/22/23 11:27 Source: patient Mode of arrival: walk-in History of Present Illness HPI Narrative: 68-year-old male presents for dizziness. He woke up today about 9:00am, two and half hours ago, with this symptom. He feels better now. No palpitations or unusual shortness breath. No chest pain or syncope. Related Data Home Medications Medication Instructions Recorded Confirmed atorvastatin 40 mg tablet 40 mg PO DAILY 06/08/23 06/22/23 lisinopril 20 mg tablet 20 mg PO DAILY 06/08/23 06/22/23 Previous Rx's Medication Instructions Recorded meloxicam 15 mg tablet 15 mg PO DAILY PRN pain #7 tabs 06/08/23 clindamycin HCl 300 mg capsule 300 mg PO TID 7 days #21 caps 06/18/23 sulfamethoxazole 800 1 tab PO BID 10 days #20 tabs 06/22/23 mg-trimethoprim 160 mg tablet (Bactrim DS) Allergies Allergy/AdvReac Type Severity Reaction Status Date / Time codeine Allergy Intermediate Verified 06/18/23 11:09 Penicillins Allergy Intermediate Verified 06/18/23 11:09 Review of Systems ROS Narrative A ten point review of systems is negative except as noted above. [facility] Medical History (Updated 06/22/23 @ 13:47 by Ted Abdalla MD) High cholesterol ?E78.00 - Pure hypercholesterolemia, unspecified (ICD-10) Myocardial infarction ?I21.9 - Acute myocardial infarction, unspecified (ICD-10) Social History Smoking status: Current every day smoker Exam Narrative Exam Narrative: Nurses note and vital signs reviewed and patient is not hypoxic. General: The patient appears well and in no apparent distress. Patient is resting comfortably on cart. Skin: Warm, dry, no pallor noted. There is no rash noted. Head: Normocephalic, atraumatic Eye: Normal conjunctiva, no drainage Ears, Nose, Mouth, and Throat: oral mucosa is moist. Nares patent. Cardiovascular: Regular Rate and Rhythm Respiratory: Patient is in no distress, no accessory muscle use, lungs are clear to auscultation, no wheezing, rales or rhonchi Back: non-tender GI: soft and nontender Musculoskeletal: The patient has no evidence of calf tenderness, no pitting edema, symmetrical pulses noted bilaterally Neurological: A&O, normal speech; upper and lower extremity strength intact and symmetric Psychiatric: Cooperative Constitutional Vital Signs, click to edit/add: Last Vital Signs Temp 97.6 F 06/22/23 11:26 Pulse 77 06/22/23 13:32 Resp 16 06/22/23 13:32 BP 159/102 H 06/22/23 13:32 Pulse Ox 95 06/22/23 13:32 O2 Del Method Room Air 06/22/23 11:26 Course Vital Signs Vital signs: Vital Signs Temperature 97.6 F 06/22/23 11:26 Pulse Rate 78 06/22/23 11:26 Respiratory Rate 16 06/22/23 11:26 Blood Pressure 178/100 H 06/22/23 11:26 Pulse Oximetry 98 06/22/23 11:26 Oxygen Delivery Method Room Air 06/22/23 11:26 Temperature 97.6 F 06/22/23 11:26 Pulse Rate 77 06/22/23 13:32 Respiratory Rate 16 06/22/23 13:32 Blood Pressure 159/102 H 06/22/23 13:32 Pulse Oximetry 95 06/22/23 13:32 Oxygen Delivery Method Room Air 06/22/23 11:26 MDM - Dizziness MDM Narrative Medical decision making narrative: Cardiac workup is negative including two troponins. CAT scan shows sinusitis, acute. He'll be prescribed Bactrim because he is symptomatic and vital continue the clindamycin that he is already on for his lip. He is being discharged home. Treatment diagnosis and follow-up were discussed with the patient. Differential Diagnosis Differential diagnosis: Likely adverse reaction to drug, benign paroxysmal positional vertigo, orthostatic hypotension, cerebrovascular accident and other (sinusitis) Lab Data Attestation: I reviewed the patient's lab results. Labs: Lab Results 06/22/23 06/22/23 Range/Units 11:35 12:47 WBC 8.2 (4.0-11.0) 10^3/uL RBC 5.54 (4.70-6.10) 10^6/uL Hgb 17.3 (14.0-18.0) g/dL Hct 51.4 (42.0-54.0) % MCV 92.8 (80.0-94.0) fL MCH 31.2 (25.9-34.0) pg MCHC 33.7 (29.9-35.2) g/dL RDW 14.6 (11.0-15.0) % Plt Count 157 (150-450) 10^3/uL MPV 10.8 (9.5-13.5) fL Neut % (Auto) 64.7 (43.0-75.0) % Lymph % (Auto) 22.6 (20.5-60.0) % Orange % (Auto) 7.8 (1.7-12.0) % Eos % (Auto) 4.3 (0.9-7.0) % Baso % (Auto) 0.4 (0.2-2.0) % Neut # (Auto) 5.3 (1.4-6.5) 10^3/uL Lymph # (Auto) 1.9 (1.2-3.8) 10^3/uL Orange # (Auto) 0.6 (0.3-0.8) 10^3/uL Eos # (Auto) 0.4 (0.0-0.7) 10^3/uL Baso # (Auto) 0.0 (0.0-0.1) 10^3/uL Abs Immat Gran (auto) 0.02 (0.00-0.03) 10^3/uL Imm/Tot Granulo (auto) 0.2 (0.0-0.5) % Sodium 140 (136-145) mmol/L Potassium 4.0 (3.5-5.1) mmol/L Chloride 104 (98-107) mmol/L Carbon Dioxide 25.2 (21.0-32.0) mmol/L Anion Gap 14.8 BUN 19.0 H (7.0-18.0) mg/dL Creatinine 1.23 (0.70-1.30) mg/dL Est GFR ( Amer) >60 (>=60) Est GFR (Non-Af Amer) 58 L (>=60) BUN/Creatinine Ratio 15.4 Glucose 195 H (74-106) mg/dL Calcium 9.1 (8.5-10.1) mg/dL Troponin I High Sens 10.1 9.7 (4.0-76.1) pg/mL Imaging Data CT scan - head: Radiologist's impression: ITS Impressions Chest X-Ray 06/22/23 11:35 Impression: No acute heart or lung disease identified. Electronically authenticated by: DARIEL SMITH Date: 06/22/2023 11:[address] 06/22/23 11:36 Impression: No acute intracranial findings. Layering fluid within the left maxillary sinus. Moderate mucosal thickening to the anterior ethmoid air cells and left frontal sinus. Findings could represent acute on chronic sinusitis. Electronically authenticated by: DREW ARREGUIN Date: 06/22/2023 12:47 ECG Data Attestation: I personally reviewed and interpreted this ECG as follows: (EKG on my interpretation shows normal sinus rhythm without acute change in rate 80.) Discharge Plan Discharge Chief Complaint: Dizziness Clinical Impression: Dizziness, Sinusitis Patient Disposition: Home, Self-Care Time of Disposition Decision: 13:47 Condition: Good Mode of Transportation: Private Vehicle Prescriptions / Home Meds: New sulfamethoxazole-trimethoprim [Bactrim DS] 800-160 mg tablet 1 tab PO BID 10 Days Qty: 20 0RF No Action lisinopril 20 mg tablet 20 mg PO DAILY atorvastatin 40 mg tablet 40 mg PO DAILY meloxicam 15 mg tablet 15 mg PO DAILY PRN (Reason: pain ) Qty: 7 0RF clindamycin HCl 300 mg capsule 300 mg PO TID 7 Days Qty: 21 0RF Instructions: Sinusitis (ED), Dizziness (ED) Stand Alone Forms: Portal Instructions Referrals: Vinay Jimenez MD [Primary Care Provider] - 1 week
--- NOTE | 2023-06-22 11:36 | CT_ITS ---
The [address] [address] Patient Name: TALISHA MERINO MRN: [id number] date: 1955 Sex: M Assigned Patient Location: ER Current Patient Location: Accession/Order Number: [id number] Exam Date: 06/22/2023 11:48 Report Date: 06/22/2023 12:47 At the request of: MARKO DICK Procedure: CT head/brain wo con Indication: 68 years year old Male referred for dizzy Comparison: None Technique: Noncontrast CT of the head was performed. Sagittal and coronal planes were obtained. Findings: The ventricles, cerebral sulci, and basal cisterns are normal for the patient's age. There is no shift in midline structures or focal mass effect. There is no acute transcortical infarction or intraparenchymal hemorrhage. There is no extra-axial fluid collection. Layering fluid within the left maxillary sinus. Moderate mucosal thickening to the anterior ethmoid air cells and left frontal sinus. Mastoid air cells are clear. There is no depressed calvarial fracture. The orbits are normal. Soft tissues are within normal limits. Cerumen in both external auditory canals. CT/CT head/brain wo con Impression: No acute intracranial findings. Layering fluid within the left maxillary sinus. Moderate mucosal thickening to the anterior ethmoid air cells and left frontal sinus. Findings could represent acute on chronic sinusitis. Electronically authenticated by: DREW ARREGUIN Date: 06/22/2023 12:47
[2023-06-22 11:42] LABS: Basophils Percent Auto 0.4 % (0.2-2.0); Eosinophils Absolute Auto 0.4 10^3/uL (0.0-0.7); Eosinophils Percent Auto 4.3 % (0.9-7.0); Hematocrit 51.4 % (42.0-54.0); Hemoglobin 17.3 g/dL (14.0-18.0); Immature Granulocytes Abs Auto 0.02 10^3/uL (0.00-0.03); Immature Granulocytes Pct Auto 0.2 % (0.0-0.5); Lymphocytes Absolute Auto 1.9 10^3/uL (1.2-3.8); Lymphocytes Percent Auto 22.6 % (20.5-60.0); Mean Corpuscular HGB Conc 33.7 g/dL (29.9-35.2); Mean Corpuscular Hemoglobin 31.2 pg (25.9-34.0); Mean Corpuscular Volume 92.8 fL (80.0-94.0); Mean Platelet Volume 10.8 fL (9.5-13.5); Monocytes Absolute Auto 0.6 10^3/uL (0.3-0.8); Monocytes Percent Auto 7.8 % (1.7-12.0); Neutrophils Absolute Auto 5.3 10^3/uL (1.4-6.5); Neutrophils Percent Auto 64.7 % (43.0-75.0); Platelet Count 157 10^3/uL (150-450); Red Blood Count 5.54 10^6/uL (4.70-6.10); Red Cell Distribution Width 14.6 % (11.0-15.0); White Blood Count 8.2 10^3/uL (4.0-11.0)
--- OUTSIDE RECORDS SUMMARY | 2023-06-22 11:45 | XMS_ITS | CCD ---
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 [employer] Unavailable [...] (1 source) Codeine Drug Allergy 12-12-2012 [facility] Repository Penicillins (antibiotic) (1 source) Penicillins Drug Allergy 12-12-2012 [facility] Repository (1 source) Codeine Drug Allergy 07-16-2018 [facility] Repository (1 source) Penicillins Drug allergy (disorder) 07-16-2018 [facility] Repository Problems Active Problems Problem Classification Problem [...] Chronic Other aftercare (1 source) 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; Translations: [OTH 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2 103/ul Normal 0.0-0.7 [facility] Comment on above: Performed By: #### C BC #### [facility] [address] [place], [place] [address] Bala Sultana Eosinophils/100 WBC (Bld) 2.6 % Normal 0.9-7.0 [facility] Comment on above: Performed By: #### C BC #### [facility] [address] [place] [address] Bala Sultana Erythrocyte distribution width (RBC) [Ratio] 18.8 % Critically high 11.0-15.0 [facility] Comment on above: Performed By: #### C BC #### [facility] [address] [place] [address] Bala Sultana Hematocrit (Bld) [Volume fraction] 46.4 % Normal 42.0-54.0 [facility] Comment on above: Performed By: #### C BC #### [facility] [address] [place] [address] Bala Sultana Hemoglobin (Bld) [Mass/Vol] 14.0 g/dL Normal 14.0-18.0 [facility] Comment on above: Performed By: #### C BC #### [facility] [address] [place] [address] Bala Sultana IG # 0.03 10e3/ul Normal 0.00-0.03 [facility] Comment on above: Performed By: #### C BC #### [facility] [address] [place] [address] Bala Sultana IG % 0.3 % Normal 0.0-0.5 [facility] Comment on above: Performed By: #### C BC #### [facility] [address] [place] [address] Bala Sultana LYMPH # 2.7 103/ul Normal 1.2-3.8 [facility] Comment on above: Performed By: #### C BC #### [facility] [address] [place] [address] Bala Sultana Lymphocytes/100 WBC (Bld) 29.0 % Normal 20.5-60.0 [facility] Comment on above: Performed By: #### C BC #### [facility] [address] [place] [address] Bala Sultana MANUAL DIFF REQ NO Normal [facility] Comment on above: Performed By: #### C BC #### [facility] [address] [place] [address] Bala Weinberg MCH (RBC) [Entitic mass] 24.8 pg Critically low 25.9-34.0 [facility] Comment on above: Performed By: #### C BC #### [facility] [address] [place] [address] Bala Weinberg MCHC (RBC) [Mass/Vol] 30.2 g/dL Normal 29.9-35.2 [facility] Comment on above: Performed By: #### C BC #### [facility] [address] [place] [address] Bala Weinberg MCV (RBC) [Entitic vol] 82.3 fL Normal 80.0-94.0 [facility] Comment on above: Performed By: #### C BC #### [facility] [address] [place] [address] Bala Weinberg MONO # 0.8 103/ul Normal 0.3-0.8 [facility] Comment on above: Performed By: #### C BC #### [facility] [address] [place] [address] Bala Weinberg Monocytes/100 WBC (Bld) 8.8 % Normal 1.7-12.0 [facility] Comment on above: Performed By: #### C BC #### [facility] [address] [place] [address] Bala Weinberg NEUT # 5.4 103/ul Normal 1.4-6.5 [facility] Comment on above: Performed By: #### C BC #### [facility] [address] [place] [address] Bala Weinberg Neutrophils/100 WBC (Bld) 59.0 % Normal 43.0-75.0 [facility] Comment on above: Performed By: #### C BC #### [facility] [address] [place], [place] [id number] Balaedilberto Weinberg Platelet mean volume (Bld) [Entitic vol] 10.3 fL Normal 9.5-13.5 [facility] Comment on above: Performed By: #### C BC #### [facility] [address] [place] [address] Bala Marceloen PLT 192 103/ul Normal 150-450 [facility] Comment on above: Performed By: #### C BC #### [facility] [address] [place] [id number] Bala Marceloen RBC 5.64 106/ul Normal 4.70-6.10 [facility] Comment on above: Performed By: #### C BC #### [facility] [address] [place] [id number] Balaedilberto Marceloen WBC 9.2 103/ul Normal 4.0-11.0 [facility] Comment on above: Performed By: #### C BC #### [facility] [address] [place] [id number] Bala Weinberg GLYCOHEMOGLOBIN A1Con 2020 ADA RECOMMENDATION ADA THERAPEUTIC TARGET 6.0 - 7.0 ACTION SUGGESTED > 7.0 Normal [facility] Comment on above: Performed By: #### A 1C #### [facility] [address] [place] [id number] Bala Weinberg Glucose [Mass/Vol] 126 mg/dL Normal [facility] Comment on above: Performed By: #### A 1C #### [facility] [address] [place] [id number] Bala Weinberg HbA1c (Bld) [Mass fraction] 6.0 % Normal <=6.0 [facility] Comment on above: Performed By: #### A 1C #### [facility] [address] [place] [id number] Bala Weinberg LIPID PROFILEon 08-29-2020 CHOL-HDL RATIO NORM SEE BELOW Normal [facility] Comment on above: Result Comment: 3.3 - 4.4 LOW RISK 4.4 - 7.1 AVERAGE RISK 7.1 - 11.0 MODERATE RISK >11.0 HIGH RISK Performed By: #### L IPID, LIVER, BMP ####[facility] [address] [place], [place] [address]Byvuwp Sultana Cholesterol [Mass/Vol] 112 mg/dL Normal <=200 [facility] Comment on above: Performed By: #### L IPID, LIVER, BMP ####[facility] [address] [place], [place] [address]Musntc Sultana Cholesterol in HDL [Mass/Vol] 29 mg/dL Normal [facility] Comment on above: Performed By: #### L IPID, LIVER, BMP ####[facility] [address] [place], [place] [address]Pumnnk Sultana Cholesterol in LDL [Mass/Vol] 56.6 mg/dL Normal [facility] Comment on above: Performed By: #### L IPID, LIVER, BMP ####[facility] [address] [place], [place] [address]Pzqasc Sultana Cholesterol.total/Cho lesterol in HDL [Mass ratio] 3.9 {ratio} Normal [facility] Comment on above: Performed By: #### L IPID, LIVER, BMP ####[facility] [address] [place], [place] [address]Paqrpm Sultana HDL NORMAL > or = 60 mg/dl - LOW CARDIOVASCULAR RISK <40 mg/dl - HIGH CARDIOVASCULAR RISK Normal [facility] Comment on above: Performed By: #### L IPID, LIVER, BMP ####[facility] [address] [place], [place] [address]Hxagal Sultana LDL CALC NORMAL SEE BELOW Normal [facility] Comment on above: Result Comment: <100 mg/dl OPTIMAL 100 - 129 mg/dl NEAR OR ABOVE OPTIMAL 130 - 159 mg/dl BORDERLINE HIGH 160 - 189 mg/dl HIGH >190 mg/dl VERY HIGH Performed By: #### L IPID, LIVER, BMP ####[facility] [address] [place], [place] [address]Jzmhtd Sultana Triglyceride [Mass/Vol] 132 mg/dL Normal <=150 [facility] Comment on above: Performed By: #### L IPID, LIVER, BMP ####[facility] [address] [place], [place] [address]Geuiqt Sultana VLDL CALC 26.4 mg/dL Normal [facility] Comment on above: Performed By: #### L IPID, LIVER, BMP ####[facility] [address] [place], [place] [address]Cqxmal Sultana LIVER PROFILEon 08-29-2020 Albumin [Mass/Vol] 3.3 g/dL Critically low 3.5-5.0 [facility] Comment on above: Performed By: #### L IPID, LIVER, BMP ####[facility] [address] [place], [place] [address]Exugzu Sultana Albumin/Globulin [Mass ratio] 0.7 {ratio} Normal [facility] Comment on above: Performed By: #### L IPID, LIVER, BMP ####[facility] [address] [place], [place] [address]Nmaxxl Sultana ALP [Catalytic activity/Vol] 62 U/L Normal 38-126 [facility] Comment on above: Performed By: #### L IPID, LIVER, BMP ####[facility] [address] [place] [id number] Sultana ALT [Catalytic activity/Vol] 15 U/L Critically low 21-72 [facility] Comment on above: Performed By: #### L IPID, LIVER, BMP ####[facility] [address] [place] [id number] Sultana AST [Catalytic activity/Vol] 18 U/L Normal 17-59 [facility] Comment on above: Performed By: #### L IPID, LIVER, BMP ####[facility] [address] [place] [id number] Sultana BILI, CONJUGATED 0.1 mg/dL Normal 0.0-0.3 [facility] Comment on above: Performed By: #### L IPID, LIVER, BMP ####[facility] [address] [place], [place] [address]Ejuqft Sultana Bilirubin [Mass/Vol] 0.3 mg/dL Normal 0.2-1.3 [facility] Comment on above: Performed By: #### L IPID, LIVER, BMP ####[facility] [address] [place], [place] [address]Avddoo Sultana Globulin (S) [Mass/Vol] 4.5 g/dL Normal [facility] Comment on above: Performed By: #### L IPID, LIVER, BMP ####[facility] [address] [place] [id number] Sultana Protein [Mass/Vol] 7.8 g/dL Normal 6.1-8.2 [facility] Comment on above: Performed By: #### L IPID, LIVER, BMP ####[facility] [address] [place] [id number] Sultana PROF CHEM 8 (BAS METB)on Anion gap [Moles/Vol] 14.8 mmol/L Normal [facility] Comment on above: Performed By: #### L IPID, LIVER, BMP ####[facility] [address] Sultana Calcium [Mass/Vol] 8.7 mg/dL Normal 8.4-10.2 [facility] Comment on above: Performed By: #### L IPID, LIVER, BMP ####[facility] [address] [place], [place] [address]Gerken Sultana Chloride [Moles/Vol] 107 mmol/L Normal 98-107 [facility] Comment on above: Performed By: #### L IPID, LIVER, BMP ####[facility] [address] [place] [address] Sultana CO2 [Moles/Vol] 24.3 mmol/L Normal 22.0-30.0 [facility] Comment on above: Performed By: #### L IPID, LIVER, BMP ####[facility] [address] [place] [id number] Sultana Creatinine [Mass/Vol] 1.17 mg/dL Normal 0.66-1.25 [facility] Comment on above: Performed By: #### L IPID, LIVER, BMP ####[facility] [address] [place] [id number] Sultana EGFR-AF CAMEROONIAN >60 Normal >=60 [facility] Comment on above: Performed By: #### L IPID, LIVER, BMP ####[facility] [address], [place] [address]Izenmj Sultana EGFR-NON AF CAMEROONIAN >60 Normal >=60 [facility] Comment on above: Performed By: #### L IPID, LIVER, BMP ####[facility] [address] [place], [place] [address]Caelao Sultana Glucose [Mass/Vol] 154 mg/dL Critically high 74-106 [facility] Comment on above: Performed By: #### L IPID, LIVER, BMP ####[facility] [address] [place], [place] [address]Sbuazu Sultana Potassium [Moles/Vol] 4.1 mmol/L Normal 3.4-5.0 [facility] Comment on above: Performed By: #### L IPID, LIVER, BMP ####[facility] [address] [place], [place] [address]Gpryqv Sultana Sodium [Moles/Vol] 142 mmol/L Normal 137-145 [facility] Comment on above: Performed By: #### L IPID, LIVER, BMP ####[facility] [address] [place], [place] [address]Irtfcp Sultana Urea nitrogen [Mass/Vol] 17.0 mg/dL Normal 9.0-20.0 [facility] Comment on above: Performed By: #### L IPID, LIVER, BMP ####[facility] [address] [place], [place] [address]Amnkjy Sultana Urea nitrogen/Creatinine [Mass ratio] 14.5 mg/mg Normal [facility] Comment on above: Performed By: #### L IPID, LIVER, BMP ####[facility] [address] [place], [place] [address]Grcrmu Sultana VITAMIN D 25 OHon 08-29-2020 VIT D 25-OH 21.1 ng/mL Normal [facility] Comment on above: Performed By: #### V ITAD ####[facility] [address] [place], [place] [address]Pojmwj Sultana VIT D RANGES SEE BELOW Normal [facility] Comment on above: Result Comment: <20 ng/mL Vit D deficient 20 - <30 ng/mL Vit D insufficient 30 - 100 ng/mL Vit D sufficient >100 ng/mL Potential Toxicity Performed By: #### V ITAD ####[facility] [address] [place], [place] [address]Bixuvo Sultana LIPID PROFILEon 01-25-2020 CHOL-HDL RATIO NORM SEE BELOW Normal [facility] Comment on above: Result Comment: 3.3 - 4.4 LOW RISK 4.4 - 7.1 AVERAGE RISK 7.1 - 11.0 MODERATE RISK >11.0 HIGH RISK Performed By: #### L IPID, PSASC, BMP #### [facility] [address] [place], [place] [address] Bala Sultana Cholesterol [Mass/Vol] 205 mg/dL Critically high <=200 [facility] Comment on above: Performed By: #### L IPID, PSASC, BMP #### [facility] [address] [place], [place] [address] Bala Sultana Cholesterol in HDL [Mass/Vol] 33 mg/dL Normal [facility] Comment on above: Performed By: #### L IPID, PSASC, BMP #### [facility] [address] [place], [place] [address] Bala Sultana Cholesterol in LDL [Mass/Vol] 121.6 mg/dL Normal [facility] Comment on above: Performed By: #### L IPID, PSASC, BMP #### [facility] [address] [place], [place] [address] Bala Sultana Cholesterol.total/Cho lesterol in HDL [Mass ratio] 6.2 {ratio} Normal [facility] Comment on above: Performed By: #### L IPID, PSASC, BMP #### [facility] [address] [place], [place] [address] Bala Sultana HDL NORMAL > or = 60 mg/dl - LOW CARDIOVASCULAR RISK <40 mg/dl - HIGH CARDIOVASCULAR RISK Normal [facility] Comment on above: Performed By: #### L IPID, PSASC, BMP #### [facility] [address] [place], [place] [address] Bala Sultana LDL CALC NORMAL SEE BELOW Normal [facility] Comment on above: Result Comment: <100 mg/dl OPTIMAL 100 - 129 mg/dl NEAR OR ABOVE OPTIMAL 130 - 159 mg/dl BORDERLINE HIGH 160 - 189 mg/dl HIGH >190 mg/dl VERY HIGH Performed By: #### L LEAH VILLAGOMEZ, BMP #### [facility] [address] [place] [address] Bala Sultana Triglyceride [Mass/Vol] 252 mg/dL Critically high <=150 [facility] Comment on above: Performed By: #### L LEAH VILLAGOMEZ, BMP #### [facility] [address] [place] [address] Bala Sultana VLDL CALC 50.4 mg/dL Normal [facility] Comment on above: Performed By: #### L LEAH VILLAGOMEZ, BMP #### [facility] [address] [place] [address] Bala Sultana PROF CHEM 8 (BAS METB)on Anion gap [Moles/Vol] 13.7 mmol/L Normal [facility] Comment on above: Performed By: #### L LEAH VILLAGOMEZ, BMP #### [facility] [address] [place] [address] Bala Sultana Calcium [Mass/Vol] 9.4 mg/dL Normal 8.4-10.2 [facility] Comment on above: Performed By: #### L LEAH VILLAGOMEZ, BMP #### [facility] [address] [place] [address] Bala Sultana Chloride [Moles/Vol] 102 mmol/L Normal 98-107 [facility] Comment on above: Performed By: #### L LEAH VILLAGOMEZ, BMP #### [facility] [address] [place] [address] Bala Sultana CO2 [Moles/Vol] 25.7 mmol/L Normal 22.0-30.0 [facility] [place] [facility] Comment on above: Performed By: #### L LEAH VILLAGOMEZ, BMP #### [facility] [address] [place] [address] Bala Sultana Creatinine [Mass/Vol] 1.83 mg/dL Critically high 0.66-1.25 [facility] Comment on above: Performed By: #### L IPID, PSASC, BMP #### [facility] [address] [place] [address] Bala Sultana EGFR-AF CAMEROONIAN 45 mL/min/1.73m2 Critically low >=60 [facility] Comment on above: Performed By: #### L IPID, PSASC, BMP #### [facility] [address] [place] [address] Bala Sultana EGFR-NON AF CAMEROONIAN 37 mL/min/1.73m2 Critically low >=60 [facility] Comment on above: Performed By: #### L IPID, PSASC, BMP #### [facility] [address] [place] [address] Bala Sultana Glucose [Mass/Vol] 115 mg/dL Critically high 74-106 T [facility] Comment on above: Performed By: #### L IPID, PSASC, BMP #### [facility] [address] [place] [address] Bala Sultana Potassium [Moles/Vol] 4.4 mmol/L Normal 3.4-5.0 [facility] Comment on above: Performed By: #### L IPID, PSASC, BMP #### [facility] [address] [place] [address] Bala Sultana Sodium [Moles/Vol] 137 mmol/L Normal 137-145 [facility] Comment on above: Performed By: #### L IPID, PSASC, BMP #### [facility] [address] [place] [address] Bala Sultana Urea nitrogen [Mass/Vol] 27.0 mg/dL Critically high 9.0-20.0 [facility] Comment on above: Performed By: #### L IPID, PSASC, BMP #### [facility] [address] [place] [address] Bala Sultana Urea nitrogen/Creatinine [Mass ratio] 14.8 mg/mg Normal [facility] Comment on above: Performed By: #### L IPID, PSASC, BMP #### [facility] [address] [place] [address] Bala Sultana CBC AUTO DIFFon 01-09-2020 BASO # 0.0 103/ul Normal 0.0-0.1 [facility] Comment on above: Performed By: #### C BC #### [facility] [address] [place] [id number] Bala Weinberg Basophils/100 WBC (Bld) 0.1 % Critically low 0.2-2.0 [facility] Comment on above: Performed By: #### C BC #### [facility] [address] [place] [address] Balaedilberto Weinberg EO # 0.0 103/ul Normal 0.0-0.7 [facility] Comment on above: Performed By: #### C BC #### [facility] [address] [place] [address] Bala Weinberg Eosinophils/100 WBC (Bld) 0.1 % Critically low 0.9-7.0 [facility] Comment on above: Performed By: #### C BC #### [facility] [address] [place] [address] Bala Weinberg Erythrocyte distribution width (RBC) [Ratio] 15.2 % Critically high 11.0-15.0 [facility] Comment on above: Performed By: #### C BC #### [facility] [address] [place] [address] Bala Weinberg Hematocrit (Bld) [Volume fraction] 38.5 % Critically low 42.0-54.0 [facility] Comment on above: Performed By: #### C BC #### [facility] [address] [place] [address] Bala Sultana Hemoglobin (Bld) [Mass/Vol] 12.7 g/dL Critically low 14.0-18.0 [facility] Comment on above: Performed By: #### C BC #### [facility] [address] [place] [address] Bala Sultana IG # 0.07 10e3/ul Critically high 0.00-0.03 [facility] Comment on above: Performed By: #### C BC #### [facility] [address] [place] [address] Bala Sultana IG % 0.5 % Normal 0.0-0.5 [facility] Comment on above: Performed By: #### C BC #### [facility] [address] [place], [place] [id number] Balaedilberto Weinberg LYMPH # 1.3 103/ul Normal 1.2-3.8 [facility] Comment on above: Performed By: #### C BC #### [facility] [address] [place] [id number] Balaedilberto Weinberg Lymphocytes/100 WBC (Bld) 8.5 % Critically low 20.5-60.0 [facility] Comment on above: Performed By: #### C BC #### [facility] [address] [place], [place] [id number] Bala Weinberg MANUAL DIFF REQ NO Normal [facility] Comment on above: Performed By: #### C BC #### [facility] [address] [place] [address] Balaedilberto Marceloen MCH (RBC) [Entitic mass] 29.5 pg Normal 25.9-34.0 [facility] Comment on above: Performed By: #### C BC #### [facility] [address] [place], [place] [id number] Balaedilberto Weinberg MCHC (RBC) [Mass/Vol] 33.0 g/dL Normal 29.9-35.2 [facility] Comment on above: Performed By: #### C BC #### [facility] [address] [place] [address] Balaedilberto Weinberg MCV (RBC) [Entitic vol] 89.3 fL Normal 80.0-94.0 [facility] Comment on above: Performed By: #### C BC #### [facility] [address] [place], [place] [address] Bala Sultana MONO # 0.9 103/ul Critically high 0.3-0.8 [facility] Comment on above: Performed By: #### C BC #### [facility] [address] [place], [place] [id number] Balaedilberto Marceloen Monocytes/100 WBC (Bld) 5.8 % Normal 1.7-12.0 [facility] Comment on above: Performed By: #### C BC #### [facility] [address] [place], [place] [address] Bala Weinberg NEUT # 13.0 103/ul Critically high 1.4-6.5 [facility] [place] [facility] Comment on above: Performed By: #### C BC #### [facility] [address] [place], [place] [address] Bala Weinberg Neutrophils/100 WBC (Bld) 85.0 % Critically high 43.0-75.0 [facility] Comment on above: Performed By: #### C BC #### [facility] [address] [place] [address] Bala Weinberg Platelet mean volume (Bld) [Entitic vol] 10.3 fL Normal 9.5-13.5 [facility] Comment on above: Performed By: #### C BC #### [facility] [address] [place], [place] [id number] Bala Weinberg PLT 203 103/ul Normal 150-450 [facility] Comment on above: Performed By: #### C BC #### [facility] [address] [place], [place] [address] Bala Weinberg RBC 4.31 106/ul Critically low 4.70-6.10 [facility] Comment on above: Performed By: #### C BC #### [facility] [address] [place], [place] [id number] Bala Weinberg WBC 15.2 103/ul Critically high 4.0-11.0 [facility] Comment on above: Performed By: #### C BC #### [facility] [address] [place] [address] ABD/PELVIS WO CONon 01-08 [...] by: Alonzo SMALL Date: 2020-01-09 19:52 Normal [facility] LIPASEon 01-09-2020 Lipase [Catalytic activity/Vol] 203.0 U/L Normal 23.0-300.0 [facility] Comment on above: Performed By: #### L IPA, CMP #### [facility] [address] [place], [place] [id number] Balaedilberto Marceloen PROF 14(COMP METB)on 020 Albumin [Mass/Vol] 4.0 g/dL Normal 3.5-5.0 [facility] Comment on above: Performed By: #### L IPA, CMP #### [facility] [address] [place], [place] [id number] Bala Sultana Albumin/Globulin [Mass ratio] 1.0 {ratio} Normal [facility] Comment on above: Performed By: #### L IPA, CMP #### [facility] [address] [place], [place] [id number] Bala Sultana ALP [Catalytic activity/Vol] 44 U/L Normal 38-126 [facility] Comment on above: Performed By: #### L IPA, CMP #### [facility] [address] [place], [place] [id number] Bala Sultana ALT [Catalytic activity/Vol] 40 U/L Normal 21-72 [facility] Comment on above: Performed By: #### L IPA, CMP #### [facility] [address] [place], [place] [id number] Bala Sultana Anion gap [Moles/Vol] 12.8 mmol/L Normal [facility] Comment on above: Performed By: #### L IPA, CMP #### [facility] [address] [place], [place] [phone] Bala Sultana AST [Catalytic activity/Vol] 37 U/L Normal 17-59 [facility] Comment on above: Performed By: #### L IPA, CMP #### [facility] [address] [place], [place] [id number] Bala Sultana Bilirubin [Mass/Vol] 0.4 mg/dL Normal 0.2-1.3 [facility] Comment on above: Performed By: #### L IPA, CMP #### [facility] [address] [place] [id number] Bala Sultana Calcium [Mass/Vol] 9.4 mg/dL Normal 8.4-10.2 [facility] Comment on above: Performed By: #### L IPA, CMP #### [facility] [address] [place] [id number] Bala Sultana Chloride [Moles/Vol] 102 mmol/L Normal 98-107 [facility] Comment on above: Performed By: #### L IPA, CMP #### [facility] [address] [place] [address] Bala Sultana CO2 [Moles/Vol] 25.0 mmol/L Normal 22.0-30.0 [facility] [place] [facility] Comment on above: Performed By: #### L IPA, CMP #### [facility] [address] [place] [address] Bala Sultana Creatinine [Mass/Vol] 2.06 mg/dL Critically high 0.66-1.25 [facility] Comment on above: Performed By: #### L IPA, CMP #### [facility] [address] [place] [id number] Bala Sultana EGFR-AF CAMEROONIAN 39 mL/min/1.73m2 Critically low >=60 [facility] Comment on above: Performed By: #### L IPA, CMP #### [facility] [address] [place] [address] Bala Sultana EGFR-NON AF CAMEROONIAN 32 mL/min/1.73m2 Critically low >=60 [facility] Comment on above: Performed By: #### L IPA, CMP #### [facility] [address] [place] [id number] Bala Sultana Globulin (S) [Mass/Vol] 4.0 g/dL Normal [facility] Comment on above: Performed By: #### L IPA, CMP #### [facility] [address] [place] [id number] Bala Sultana Glucose [Mass/Vol] 137 mg/dL Critically high 74-106 [facility] Comment on above: Performed By: #### L IPA, CMP #### [facility] [address] [place] [id number] Bala Sultana Potassium [Moles/Vol] 4.8 mmol/L Normal 3.4-5.0 [facility] Comment on above: Performed By: #### L IPA, CMP #### [facility] [address] [place] [phone] Bala Sultana Protein [Mass/Vol] 8.0 g/dL Normal 6.1-8.2 [facility] Comment on above: Performed By: #### L IPA, CMP #### [facility] [address] [place] [address] Bala Sultana Sodium [Moles/Vol] 135 mmol/L Critically low 137-145 [facility] Comment on above: Performed By: #### L IPA, CMP #### [facility] [address] [place] [id number] Bala Sultana Urea nitrogen [Mass/Vol] 33.0 mg/dL Critically high 9.0-20.0 [facility] Comment on above: Performed By: #### L IPA, CMP #### [facility] [address] [place] [phone] Bala Sultana Urea nitrogen/Creatinine [Mass ratio] 16.0 mg/mg Normal [facility] Comment on above: Performed By: #### L IPA, CMP #### [facility] [address] [place] [phone] Bala Weinberg HEMOGLOBINon 10-12-2019 Hemoglobin (Bld) [Mass/Vol] 14.1 g/dL Normal 14.0-18.0 [facility] Comment on above: Performed By: #### H GB #### [facility] [address] [place] [phone] Bala Sultana Basic Metabolic Panelon 06-27 Calcium mass conc 8.8 mg/dL Normal 8.2-10.2 [facility] Comment on above: Performed By: #### C BC, BMP, TROP #### [facility] [address] [place] [address] [place] Chloride molar conc 106 mmol/L Normal 95-114 [facility] Comment on above: Performed By: #### C BC, BMP, TROP #### [facility] [address] CO2 molar conc 22.1 mmol/L Normal 22.0-30.0 [facility] Comment on above: Performed By: #### C BC, BMP, TROP #### [facility] [address] [place] [address] Creatinine mass conc 81.6145024256 mg/dL Normal [facility] Comment on above: Performed By: #### C BC, BMP, TROP #### [facility] [address] Creatinine mass conc 1.11 mg/dL Normal 0.64-1.27 [facility] Comment on above: Performed By: #### C BC, BMP, TROP #### [address] Estimated GFR ( [place] > 60 [facility] Comment on above: Result Comment: GFR estimated reference range: According to KDOQI guidelines, <60 ml/min/1.73m2 is sufficient to diagnose a patient with chronic kidney disease. Performed By: #### C BC, BMP, TROP #### [address] Estimated GFR (Non- Am > 60 [facility] Comment on above: Performed By: #### C BC, BMP, TROP #### [address] Glucose mass conc 106 mg/dL High 70-100 [facility] Comment on above: Result Comment: [place] om Glucose Reference Range is dependent on time and content of last meal. Glucose of more than 200 mg/dL in a nonstressed, ambulatory subject supports the diagnosis of Diabetes Mellitus. ADA recommended reference range Performed By: #### C BC, BMP, TROP #### [address] Potassium molar conc 3.8 mmol/L Normal 3.5-5.1 [facility] Comment on above: Performed By: #### C BC, BMP, TROP #### [facility] [address] [place] [address] Sodium molar conc 137 mmol/L Normal 136-146 [facility] Comment on above: Performed By: #### C BC, BMP, TROP #### [address] Urea nitrogen mass conc 13 mg/dL Normal 9-23 [facility] Comment on above: Performed By: #### C BC, BMP, TROP #### [address] Complete Blood Count Auto Di ffon 07-17-2018 Basophils #/vol (Bld) 0.0 10*3/uL Normal 0.0-0.2 [facility] Comment on above: Result Comment: PERF ORMED BY: [place] [address] PATHOLOGIST MANAGER OF LEARNING ARMIN ROUSSEAU M.D. Performed By: #### C BC, BMP, TROP #### [address] Basophils/100 WBC (Bld) 0.4 % Normal . [facility] Comment on above: Performed By: #### C BC, BMP, TROP #### [address] Eosinophils #/vol (Bld) 0.2 10*3/uL Normal 0.0-0.45 [facility] Comment on above: Performed By: #### C BC, BMP, TROP #### [address] Eosinophils/100 WBC (Bld) 1.9 % Normal . [facility] Comment on above: Performed By: #### C BC, BMP, TROP #### [address] Erythrocyte distribution width Ratio (RBC) 14.7 % Normal 12.0-14.8 [facility] Comment on above: Performed By: #### C BC, BMP, TROP #### [address] Hematocrit Volume Fraction (Bld) 48.5 % Normal 38.8-50.0 [facility] Comment on above: Performed By: #### C ALBER EWING, TROP #### [address] Hemoglobin mass conc (Bld) 16.5 g/dL Normal 13.0-17.0 [facility] Comment on above: Performed By: #### C KAYLIN BMP, TROP #### [address] Lymphocytes #/vol (Bld) 3.2 10*3/uL Normal 1.00-4.8 [facility] Comment on above: Performed By: #### C ALBER EWING, TROP #### [address] Lymphocytes/100 WBC (Bld) 32.3 % Normal . [facility] Comment on above: Performed By: #### C KAYLIN BMP, TROP #### [address] MCH Entitic mass (RBC) 31.6 pg Normal 27.5-35.2 [facility] Comment on above: Performed By: #### C KAYLIN BMP, TROP #### [address] MCH Entitic mass (RBC) 34.1 g/dL Normal 32.5-35.6 [facility] Comment on above: Performed By: #### C KAYLIN BMP, TROP #### [address] MCV Entitic volume (RBC) 92.9 fL Normal 83.5-101 [facility] Comment on above: Performed By: #### C BC BMP, TROP #### [address] Monocytes #/vol (Bld) 0.9 10*3/uL High 0.0-0.8 [facility] Comment on above: Performed By: #### C BC, BMP, TROP #### [facility] [address] [place] [address] [place] Monocytes/100 WBC (Bld) 9.0 % Normal . [facility] Comment on above: Performed By: #### C BC BMP, TROP #### [facility] [address] [place] [address] [place] Neutrophils #/vol (Bld) 5.6 10*3/uL Normal 1.8-7.7 [facility] Comment on above: Performed By: #### C BC BMP, TROP #### [facility] [address] Neutrophils/100 WBC (Bld) 56.4 % Normal . [facility] Comment on above: Performed By: #### C BC BMP, TROP #### [facility] [address] Nucleated RBC/100 WBC Ratio (Bld) 0.2 % Normal 0-0.5 [facility] Comment on above: Performed By: #### C BC BMP, TROP #### [facility] [address] [place] [address] [place] Platelet mean volume Entitic volume (Bld) 8.1 fL Normal 6.6-10.1 [facility] Comment on above: Performed By: #### C BC BMP, TROP #### [facility] [address] [place] [address] [place] Platelets #/vol (Bld) 165 10*3/uL Normal 150-450 [facility] Comment on above: Performed By: #### C BC, BMP, TROP #### [facility] [address] [place] [address] [place] RBC #/vol (Bld) 5.22 10*6/uL Normal 3.90-5.60 [facility] Comment on above: Performed By: #### C BC, BMP, TROP #### [facility] [address] [place] [address] [place] WBC #/vol (Bld) 9.8 10*3/uL Normal 4.1-10.5 [facility] Comment on above: Performed By: #### C BC, BMP, TROP #### [facility] [address] Lipid Panelon 07-17-2018 Cholesterol in HDL mass conc 25 mg/dL Low 29-71 [facility] Comment on above: Result Comment: HDL CHOL ATP-III CLASSIFICATION Cardiovascular Risk HDL > or equal to 60 mg/dL LOW HDL < 40 mg/dL HIGH Performed By: #### C BC, BMP, TROP #### [facility] [address] Cholesterol mass conc 131 mg/dL Low 140-200 [facility] Comment on above: Result Comment: Chol less than 200 mg/dl low risk Chol 201-239 mg/dl borderline risk Chol 240 mg/dl and greater high risk Performed By: #### C BC, BMP, TROP #### [facility] [address] Cholesterol.total/Cho lesterol in HDL mass ratio 5.2 {ratio} Normal <5.0 [facility] Comment on above: Result Comment: PERF ORMED BY: [place] [address] PATHOLOGIST MANAGER OF LEARNING ARMIN ROUSSEAU M.D. Performed By: #### C BC, BMP, TROP #### [address] LDL Cholesterol,Calculate d 78 mg/dL Normal 0-100 [facility] Comment on above: Result Comment: LDL ATP III CLASSIFICATION LDL less than 100 mg/dL Optimal LDL 100-129 mg/dL Near or above optimal LDL 130-159 mg/dL Borderline high LDL 160-189 mg/dL High LDL greater than 189 mg/dL Very high Performed By: #### C BC, BMP, TROP #### [facility] [address] Triglyceride w/Reflex 142 mg/dL Normal 35-149 [facility] Comment on above: Result Comment: TRIG ATP III CLASSIFICATION TRIG less than 150 mg/dL Normal TRIG 150-199 mg/dL Borderline high TRIG 200-500 mg/dL High TRIG greater than 500 mg/dL Very high Standard traceable to the Center for Disease Conrtrol and Prevention (CDC) test method. Performed By: #### C BC, BMP, TROP #### [facility] [address] VLDL CHOLESTEROL 28 mg/dL Normal [facility] Comment on above: Performed By: #### C BC, BMP, TROP #### [facility] [address] Partial Thromboplastin Timeo n 07-17-2018 aPTT Coag time (Bld) 36.2 s High 23.0-35.0 [facility] Comment on above: Result Comment: PERF ORMED BY: [place] [address] PATHOLOGIST MANAGER OF LEARNING ARMIN ROUSSEAU M.D. Performed By: #### C BC, BMP, TROP #### [address] Prothrombin Time INRon 07-17 INR Coag RelTime (PPP) 1.2 {INR} Normal [facility] Comment on above: Result Comment: INR Therapeutic [...] By: #### C BC, BMP, TROP #### [address] Prothrombin time (PT) Coag time (PPP) 13.4 s High 9.0-12.9 [facility] Comment on above: Performed By: #### C BC, BMP, TROP #### [facility] [address] [place] [address] Troponin I(TnI)on 07-17-2018 Troponin I.cardiac mass conc 5.99 ng/mL Off scale high 0-0.02 [facility] Comment on above: Result Comment: [place] Cut off value > or equal to 0.03 ng/mL in conjunction with clinical conditions of myocardial infarction. (www.escardio.org/guidelines) PERFORMED BY: [place] [address] PATHOLOGIST MANAGER OF LEARNING ARMIN ROUSSEAU M.D. Performed By: #### C BC, BMP, TROP #### [facility] [address] A1C with Estimated Average G karishma 07-16-2018 Glucose mass conc 131 mg/dL Normal [facility] Comment on above: Result Comment: PERF ORMED BY: [place] [address] PATHOLOGIST MANAGER OF LEARNING ARMIN ROUSSEAU M.D. Performed By: #### A 1C WTH eA #### [address] Hemoglobin A1c/Hemoglobin.total mass fraction (Bld) 6.2 % High 4.3-5.6 [facility] Comment on above: Result Comment: Incr eased risk for diabetes: 5.7 - 6.4 diabetes: >6.4 glycemic control for adults with diabetes: <7.0 Performed By: #### A 1C WTH eA #### [facility] [address] [place] [address] Basic Metabolic Panelon 06-27 Calcium mass conc 9.1 mg/dL Normal 8.2-10.2 [facility] Comment on above: Performed By: #### C BC, BMP, TROP #### [place] [address] [place] Chloride molar conc 107 mmol/L Normal 95-114 [facility] Comment on above: Performed By: #### C BC, BMP, TROP #### [facility] [address] CO2 molar conc 23.8 mmol/L Normal 22.0-30.0 [facility] Comment on above: Performed By: #### C BC, BMP, TROP #### [facility] [address] [place] [address] Creatinine mass conc 85.0850105458 mg/dL Normal [facility] Comment on above: Result Comment: PERF ORMED BY: [place] [address] PATHOLOGIST MANAGER OF LEARNING ARMIN ROUSSEAU M.D. Performed By: #### C BC, BMP, TROP #### [place] [address] [place] Creatinine mass conc 1.05 mg/dL Normal 0.64-1.27 [facility] Comment on above: Performed By: #### C BC, BMP, TROP #### [address] Estimated GFR ( [place] > 60 Normal [facility] Comment on above: Result Comment: GFR estimated reference range: According to KDOQI guidelines, <60 ml/min/1.73m2 is sufficient to diagnose a patient with chronic kidney disease. Performed By: #### C BC, BMP, TROP #### [place] [address] [place] Estimated GFR (Non- Am > 60 Normal [facility] Comment on above: Performed By: #### C BC, BMP, TROP #### [place] [address] [place] Glucose mass conc 100 mg/dL Normal 70-100 [facility] Comment on above: Result Comment: [place] om Glucose Reference Range is dependent on time and content of last meal. Glucose of more than 200 mg/dL in a nonstressed, ambulatory subject supports the diagnosis of Diabetes Mellitus. ADA recommended reference range Performed By: #### C BC, BMP, TROP #### [place] [address] [place] Potassium molar conc 3.9 mmol/L Normal 3.5-5.1 [facility] Comment on above: Performed By: #### C BC, BMP, TROP #### [place] [address] [place] Sodium molar conc 138 mmol/L Normal 136-146 [facility] Comment on above: Performed By: #### C BC, BMP, TROP #### [place] [address] [place] Urea nitrogen mass conc 12 mg/dL Normal 9-23 [facility] Comment on above: Performed By: #### C BC, BMP, TROP #### [facility] [address] Complete Blood Count Auto Di ffon 07-16-2018 Basophils #/vol (Bld) 0.1 10*3/uL Normal 0.0-0.2 [facility] Comment on above: Result Comment: PERF ORMED BY: [place] [address] PATHOLOGIST MANAGER OF LEARNING ARMIN ROUSSEAU M.D. Performed By: #### C BC, BMP, TROP #### [facility] [address] Basophils/100 WBC (Bld) 0.9 % Normal . [facility] Comment on above: Performed By: #### C BC, BMP, TROP #### [facility] [address] Eosinophils #/vol (Bld) 0.1 10*3/uL Normal 0.0-0.45 [facility] Comment on above: Performed By: #### C BC, BMP, TROP #### [facility] [address] [place] [address] Eosinophils/100 WBC (Bld) 1.3 % Normal . [facility] Comment on above: Performed By: #### C BC, BMP, TROP #### [facility] [address] Erythrocyte distribution width Ratio (RBC) 14.9 % High 12.0-14.8 [facility] Comment on above: Performed By: #### C BC, BMP, TROP #### [facility] [address] Hematocrit Volume Fraction (Bld) 52.3 % High 38.8-50.0 [facility] Comment on above: Performed By: #### C BC, BMP, TROP #### [facility] [address] [place] [address] Hemoglobin mass conc (Bld) 17.6 g/dL High 13.0-17.0 [facility] Comment on above: Performed By: #### C BC, BMP, TROP #### [facility] [address] [place] [address] [place] Lymphocytes #/vol (Bld) 3.2 10*3/uL Normal 1.00-4.8 [facility] Comment on above: Performed By: #### C BC, BMP, TROP #### [facility] [address] [place] [address] [place] Lymphocytes/100 WBC (Bld) 29.4 % Normal . [facility] Comment on above: Performed By: #### C BC, BMP, TROP #### [facility] [address] MCH Entitic mass (RBC) 33.7 g/dL Normal 32.5-35.6 [facility] Comment on above: Performed By: #### C BC, BMP, TROP #### [facility] [address] MCH Entitic mass (RBC) 31.2 pg Normal 27.5-35.2 [facility] Comment on above: Performed By: #### C BC, BMP, TROP #### [facility] [address] MCV Entitic volume (RBC) 92.8 fL Normal 83.5-101 [facility] Comment on above: Performed By: #### C BC, BMP, TROP #### [facility] [address] [place] [address] [place] Monocytes #/vol (Bld) 0.8 10*3/uL Normal 0.0-0.8 [facility] Comment on above: Performed By: #### C BC, BMP, TROP #### [facility] [address] [place] [address] [place] Monocytes/100 WBC (Bld) 7.6 % Normal . [facility] Comment on above: Performed By: #### C BC, BMP, TROP #### [facility] [address] [place] [address] [place] Neutrophils #/vol (Bld) 6.7 10*3/uL Normal 1.8-7.7 [facility] Comment on above: Performed By: #### C BC, BMP, TROP #### [facility] [address] [place] [address] [place] Neutrophils/100 WBC (Bld) 60.8 % Normal . [facility] Comment on above: Performed By: #### C BC, BMP, TROP #### [facility] [address] Nucleated RBC/100 WBC Ratio (Bld) 0.1 % Normal 0-0.5 [facility] Comment on above: Performed By: #### C BC, BMP, TROP #### [facility] [address] Platelet mean volume Entitic volume (Bld) 8.3 fL Normal 6.6-10.1 [facility] Comment on above: Performed By: #### C BC, BMP, TROP #### [facility] [address] Platelets #/vol (Bld) 191 10*3/uL Normal 150-450 [facility] Comment on above: Performed By: #### C BC, BMP, TROP #### [facility] [address] [place] [address] [place] RBC #/vol (Bld) 5.64 10*6/uL High 3.90-5.60 [facility] Comment on above: Performed By: #### C BC, BMP, TROP #### [facility] [address] [place] [address] [place] WBC #/vol (Bld) 10.9 10*3/uL Normal 4.5-11.0 [facility] Comment on above: Performed By: #### C BC, BMP, TROP #### [facility] [address] ECG 12 lead ECGon 07-16-2018 ECG 12 lead ECG [facility] [place] [address] [place] [address] Electrocardiograph Report Signed Patient: Talisha Escobedo MR#: [id number] : 1955 Acct:[id number] Age/Sex: 63 / M ADM Date: 07/15/18 Loc: Room: [address] [place] [address] Type: ADM IN Attending Dr: Zari Biggs [...] was found Confirmed by ANTHONY WALLACE MD ([id number]) on 07/16/2018 1:52:09 PM Referred By: Electronically Signed By:ANTHONY WALLACE MD Transcribed By: [facility] [facility] Dictated By: Anthony Wallace MD 07/16/18 0757 Signed By: 07/16/18 1352 Normal [facility] ECG 12 lead ECG [facility] [place] [place] [address] Electrocardiograph Report Signed Patient: Talisha Escobedo MR#: [id number] : 1955 Acct:[id number] Age/Sex: 63 / M ADM Date: 07/15/18 Loc: Room: 3M7288-0 Type: ADM IN Attending Dr: Shilpa Rubio [...] ECGs available Confirmed by ANTHONY WALLACE MD ([id number]) on 07/17/2018 12:21:33 PM Referred By: Electronically Signed By:ANTHONY WALLACE MD Transcribed By: [facility] Dictated By: Anthony Wallace MD 07/16/18 0213 Signed By: 07/17/18 1221 Normal [facility] echo transthoracicon [facility] echo transthoracic [facility] Main [place] [address] [place], [place] [id number] Echocardiogram Signed Patient: Talisha Escobedo MR#: [id number] : 1955 Acct:[id number] Age/Sex: 63 / M ADM Date: 07/15/18 Loc: Room: 0S9187-7 Type: ADM IN Attending Dr: Zari Biggs MD Ordering Provider: Anish Mittal MD Date of Service: 07/16/18 [facility] echo transthoracic: NSTEMI Copies to: MD Treasure [...] 07/16/18 0856 Signed By: 07/16/18 1042 Normal [facility] Magnesiumon 07-16-2018 Magnesium mass conc 2.1 mg/dL Normal 1.6-2.6 [facility] Comment on above: Order Comment: Comme nt add Result Comment: PERF ORMED BY: [place] [address] PATHOLOGIST MANAGER OF LEARNING ARMIN ROUSSEAU M.D. Performed By: #### M G #### [facility] [address] [place] [address] Partial Thromboplastin Timeo n 07-16-2018 aPTT Coag time (Bld) 43.2 s High 23.0-35.0 [facility] Comment on above: Result Comment: PERF ORMED BY: [place] [address] PATHOLOGIST MANAGER OF LEARNING ARMIN ROUSSEAU M.D. Performed By: #### P TT #### [facility] [address] [place] [address] aPTT Coag time (Bld) 38.1 s High 23.0-35.0 [facility] Comment on above: Result Comment: PERF ORMED BY: [place] [address] PATHOLOGIST MANAGER OF LEARNING ARMIN ROUSSEAU M.D. Performed By: #### P T, PTT #### [facility] [address] [place], [place] [id number] [place] Prothrombin Time INRon 07-16 INR Coag RelTime (PPP) 1.1 {INR} Normal [facility] Comment on above: Result Comment: INR Therapeutic [...] Performed By: #### P T, PTT #### [address] Prothrombin time (PT) Coag time (PPP) 12.9 s Normal 9.0-12.9 [facility] Comment on above: Performed By: #### P T, PTT #### [address] Troponin I(TnI)on 07-16-2018 Troponin I.cardiac mass conc 14.57 ng/mL Off scale high 0-0.02 [facility] Comment on above: Result Comment: [place] Cut off value > or equal to 0.03 ng/mL in conjunction with clinical conditions of myocardial infarction. (www.escardio.org/guidelines) PERFORMED BY: [place] [address] PATHOLOGIST MANAGER OF LEARNING ARMIN ROUSSEAU M.D. Performed By: #### T ROP #### [address] Troponin I.cardiac mass conc 25.38 ng/mL Off scale high 0-0.02 [facility] Comment on above: Result Comment: Resu lts called at 0153 on 07/16/18 [place] Cut off value > or equal to 0.03 ng/mL in conjunction with clinical conditions of myocardial infarction. (www.escardio.org/guidelines) PERFORMED BY: [place] [address] PATHOLOGIST MANAGER OF LEARNING ARMIN ROUSSEAU M.D. Performed By: #### C BC, BMP, TROP #### [address] Encounters Encounter Date Encounter Type Care Provider Facility Start: 08-29-2020 End: 08-30-[address] VINAY OROURKE Facility:[facility] Start: 01-25-2020 End: 01-26-[address] VINAY OROURKE Facility:[facility] Start: 01-09-2020 End: 01-09-[address] KATE CASSIDY Facility:[facility] Start: 10-12-2019 End: 10-13-[address] VINAY OROURKE Facility:[facility] Start: 07-16-2018 End: 07-17-2018 [facility] Procedures Date Procedure Procedure Detail Performing Clinician Start: 01-25-[address] VINAY MARTINEZ Comment on above: Performed By: #### L IPID, PSASC, BMP #### [facility] [address] [place], [place] [address] Bala Weinberg Payers Date Payer Category Payer Self-pay 1960 Medicare [id number] 1960 Medicare [id number] 1960 Unknown [id number] 1955 Unknown [id number] 2.16.84 [id number] 1955 Unknown [id number] 2.16.84 [id number] 1955 Unknown [id number] 2.16.84 [id number] 1955 Unknown [id number] 2.16.84 [id number] Unknown [id number] Summary Purpose Family History No Family History Records FoundNo Family History Records Found Advance Directives No Advanced Directives Records FoundNo Advanced Directives Records Found Additional Source Comments (unrecognized sect ion and content) No Status Records FoundNo Status Records Found INFORMATION SOURCE (unrecogn ized section and content) DATE CREATED AUTHOR 08/22/2018 [facility] DATE CREATED AUTHOR AUTHOR'S ORGANIZ ATION 10/05/2020 [facility] FOR RECORDS PERTAINING TO PATIENTS WHO ARE [...] BE BASED ON THE PRIMARY CLINICAL RECORDS. [employer] [facility]. provides no warranty or guarantee of the accuracy or completeness of information in this document.
[2023-06-22 12:02] LABS: Anion Gap 14.8; BUN Creatinine Ratio 15.4; Calcium 9.1 mg/dL (8.5-10.1); Carbon Dioxide 25.2 mmol/L (21.0-32.0); Chloride 104 mmol/L (98-107); Estimated GFR (African America >60 (>=60); Estimated GFR (Non-African Ame 58 (>=60); Glucose 195 mg/dL (74-106); Sodium 140 mmol/L (136-145)
[2023-06-22 12:10] LABS: Troponin I High Sensitivity 10.1 pg/mL (4.0-76.1)
[2023-06-22 13:25] LABS: Troponin I High Sensitivity 9.7 pg/mL (4.0-76.1)
== END 2023-06-22 13:59 | disposition home or self-care (01) ==
PROVIDERS: Emergency Provider Emergency Medicine; PCP Family Medicine
DX: R42 Dizziness and giddiness (principal); J01.90 Acute sinusitis, unspecified; E78.00 Pure hypercholesterolemia, unspecified; I25.2 Old myocardial infarction; F17.210 Nicotine dependence, cigarettes, uncomplicated; Z79.899 Other long term (current) drug therapy
CPT/HCPCS: 36415; 70450; 71045; 80048; 84484; 85025; 93005; 99285